=== PATIENT | female | born 1955 | race Caucasian/White ===

== ENCOUNTER → 2018-12-29 08:04 | Outpatient (CLI) | payer MEDICAID, SELFPAY ==
--- NOTE | 2018-12-29 08:13 | XR_ITS ---
XR knee LT 3V HISTORY: ITS.REASON: LT KNEE PAIN ORDERING PHYSICIAN: Noemi Gonsales APRN PATIENT AGE: 63 years COMPARISON: None FINDINGS: No fracture or dislocation. No lytic or blastic change. Normal mineralization. No significant arthritic changes evident. No other significant findings IMPRESSION: Negative Knee
--- NOTE | 2018-12-29 08:13 | XR_ITS ---
XR shoulder LT min 2V HISTORY: ITS.REASON: LT SHOULDER PAIN ORDERING PHYSICIAN: Noemi Gonsales APRN PATIENT AGE: 63 years Comparison: None FINDINGS: No fracture or dislocation. No lytic or blastic change. There are mild osteoarthritic changes of the acromioclavicular joint and glenohumeral joint. Calcification is present along the humeral head laterally consistent with calcific tendinitis. 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
== END ==
PROVIDERS: PCP Nurse Practitioner Family; Visit Provider Nurse Practitioner Family
DX: M25.562 Pain in left knee (principal); M25.512 Pain in left shoulder
CPT/HCPCS: 73030; 73562

== ENCOUNTER → 2019-04-02 09:47 | Outpatient (CLI) | payer MEDICAID, SELFPAY ==
[2019-04-02 09:53] LABS: Microscopic, Urine URINE MICROSCOPIC (MICROSCOPIC)
[2019-04-02 10:10] LABS: Basophils % 0.1 % (0.1-2.0); Eosinophils # 0.3 K/mm3 (0.0-0.4); Eosinophils % 3.6 % (0.1-12.0); Hematocrit 43.5 % (37.0-47.0); Hemoglobin 13.6 g/dL (12.2-16.2); Lymphocytes # 2.1 K/mm3 (0.7-4.5); Lymphocytes % 29.5 % (10-50); Mean Corpuscular HGB Conc 31.1 g/dL (31.8-35.4); Mean Corpuscular Hemoglobin 27.4 pg (27.0-31.2); Mean Platelet Volume 8.9 fl (7.4-10.4); Monocytes # 0.6 K/mm3 (0.1-1.0); Monocytes % 8.3 % (1.7-9.3); Neutrophils # 4.2 K/mm3 (1.8-7.8); Neutrophils % 58.5 % (37.0-80.0); Platelet Count 236 K/mm3 (142-424); Red Blood Count 4.95 M/mm3 (4.20-5.40); Red Cell Distribution Width 13.8 % (11.5-17.5); White Blood Count 7.1 K/mm3 (4.8-10.8)
[2019-04-02 17:45] LABS: Albumin Level 4.1 gm/dL (3.4-5.0); Anion Gap 16.1 mEq/L (5-15); Blood Urea Nitrogen 25 mg/dL (7-18); Calcium 8.8 mg/dL (8.5-10.1); Carbon Dioxide 27 mmol/L (21.0-32.0); Chloride 105 mmol/L (98-107); Creatinine,Serum 1.63 mg/dL (0.55-1.02); Estimated Glomerular Filt Rate 32 ml/min (>60); GFR (African American) 39 ML/MIN (>60); Glucose 115 mg/dL (74-106); Phosphorous 3.3 mg/dL (2.4-4.9); Sodium 144 mmol/L (136-145)
[2019-04-02 18:12] LABS: Appearance,Urine CLEAR (Clear); Blood, Urine Negative (Negative); Color,Urine YELLOW (Yellow); Glucose,Urine (UA) Negative (Negative); Ketones,Urine TRACE (Negative); Leukocyte Esterase,Urine Negative (Negative); Nitrate,Urine Negative (Negative); PH,Urine 5.5 (5.0-8.5); Protein,Urine Negative (Negative); Specific Gravity, Urine 1.025 (1.005-1.030); Urobilinogen,Urine 0.2 EU/dl (0.2)
[2019-04-02 18:13] LABS: Bilirubin,Urine Negative (Negative)
[2019-04-02 18:36] LABS: Potassium 4.1 mmoL/L (3.5-5.1)
[2019-04-02 19:36] LABS: Bacteria,Urine 3+ /lpf; Mucus,Urine 2+ /lpf; WBC,Urine Occasional #/hpf (0-3)
[2019-04-02 20:23] LABS: Creatinine,Urine Random 294 mg/dL (20-320); Total Protein,Urine Random 23.7 mg/dL (0.0-11.9)
[2019-04-04 00:27] LABS: Parathyroid Hormone Intact 62 pg/mL (15-65)
[2019-04-04 00:28] LABS: Vitamin D 25 Hydroxy 31.7 ng/mL (30.0-100.0)
== END ==
PROVIDERS: PCP Nurse Practitioner Family; Visit Provider Internal Medicine Nephrology
DX: N18.3 Chronic kidney disease, stage 3 (moderate) (principal)
CPT/HCPCS: 36415; 80069; 81001; 82570; 82652; 83970; 84155; 85025; 87086

== ENCOUNTER 2019-04-23 10:00 | Outpatient (RCR) | payer MEDICAID, SELFPAY ==
--- NOTE | 2019-02-13 11:08 | HMH.OTOPEV ---
OT Inpatient Evaluation Rehab OT Outpatient Eval Start: 02/13/19 10:52 Freq: Status: Active Protocol: Document 02/13/19 10:52 RMARSHALL (Rec[id number] Electronically Signed By Gilma Marmolejo OT 02/13/19 10:52 Outpatient Therapy Subjective History Subjective History Pt is a 63 year old female who reports to therapy for initial evaluation to left shoulder. Pt reports her shoulder began having pain ~3 months ago. She does not recall a specific injury causing pain. Pt did have a x -ray completed showing arthritic changes. Pt went for consultation with Ortho and received an injection on . Pt claims since the injection her pain has improved significantly, but her motion is still declined. Pt does demonstrate with decreased AROM and strength at left shoulder. Pt will continue to be seen twice a week in order to address all deficits. Chief Complaint Pain,Stiff Symptom Type Ache,Throb,Sharp Symptoms Relieved By Rest/Positioning Symptoms Aggravated By Physical Activity,Lifting Prior Functional Limitations None Current Functional Limitations Reaching,Lifting,Housework, Dressing,Sleeping,Recreation Activity Symptom Description Intermittent,Activity Dependent Level of pain today (0-10) 1 Pain scale - at its best (0-10) 0 Pain scale - at its worst (0-10) 6 Shoulder/Elbow Eval Shoulder Objective Measurements Shoulder ROM Left Shoulder ROM Limitations Muscle Weakness,Pain Shoulder Abduction Active Range of 100 degrees Motion (degrees) Shoulder Abduction Passive Range of 130 degrees Motion (degrees) Shoulder Flexion Active Range of Motion 105 degrees (degrees) Query Text: Shoulder Flexion Passive Range of Motion 130 degrees (degrees) Shoulder External Rotation Active Range 32 degrees of Motion (degrees) Shoulder External Rotation Passive Range 40 degrees of Motion (degrees) Shoulder Internal Rotation Active Range 40 degrees of Motion (degrees)
--- NOTE | 2019-03-21 11:15 | HMH.RHREAS ---
Rehab Reassessment Rehab OP Re-assessment Start: 03/21/19 10:42 Freq: Status: Active Protocol: Document 03/21/19 10:50 ZAYDA (Rec: 03/21/19 10:56 [id number] Electronically Signed By Gilma Marmolejo OT 03/21/19 10:50 Rehab Re-assessment Subjective Subjective I still want the motion to be better. Objective Objective Notes Pt continues to be seen twice a week in order to address left shoulder deficits. Pt engages in Left AROM/AAROM/ Strengthening exercises at shoulder. Pt also receives PROM manual stretching to left shoulder in all planes. Pt usually receives modalities such as e-stim and ice to reduce pain/inflammation. Assessment Progress Assessment Progressing as Expected Assessment Notes Pt is demonstrating progress with AROM and strength. Pt is still having significant pain when being stretched. Pt feels her motion has improved, but she wants to have full AROM like she did prior. L shoulder AROM Current Flex: 146 degrees Abd: 134 degrees ER: 60 degrees IF: 65 degrees Patient goals met Pt has met all short term goals Goals Not Met intermediate project manager goals Revised Goals Continue to progress towards fpc goals written during initial evaluation. Plan Plan Continue with OT plan of care at this time. Frequency of Therapy 2x's a week Duration of therapy 4-6 more weeks Time and Billing Re-Eval Time 15 Re-Eval Billing Units 1 PHYSICIAN CERTIFICATION: I certify the specified therapy services for Deandra Lacey are required, authorized, and reviewed every 30 days.
== END 2019-04-23 10:05 | disposition home or self-care (01) ==
LOC: OT 10:00
PROVIDERS: Visit Provider Orthopaedic Surgery
DX: M75.02 Adhesive capsulitis of left shoulder (principal)
CPT/HCPCS: 97014; 97110; 97140; 97164; 97166; G0283

== ENCOUNTER → 2019-05-01 13:51 | Outpatient (CLI) | payer MEDICAID, SELFPAY ==
--- NOTE | 2019-05-01 13:56 | XR_ITS ---
PROCEDURE: XR KNEE RT 4V CLINICAL INDICATION: Knee pain Severe right knee pain with limited mobility COMPARISON: No exams were available for comparison FINDINGS: Status post total knee replacement with good alignment. There is a faintly prominent zone of lucency around both femoral and tibial prosthesis. Please correlate with old studies to determine if this is new or old. There are no previous exams available at this institution. There is some mild periarticular calcification. IMPRESSION: Status post total knee replacement as described above. No definite acute finding Dictated by: Kenn Brumfield MD 05/01/2019 14:44 Electronically signed by Kenn Brumfield MD in [place] 05/01/2019 14:44
== END ==
PROVIDERS: PCP Family Medicine; Visit Provider Orthopaedic Surgery
DX: M25.561 Pain in right knee (principal)
CPT/HCPCS: 73564

== ENCOUNTER → 2019-05-14 13:34 | Outpatient (POV) | payer MEDICAID, SELFPAY | PROVIDERS: Visit Provider Internal Medicine Nephrology | DX: Z00.00 Encounter for general adult medical examination without abnormal findings (principal) ==

== ENCOUNTER → 2019-09-03 09:32 | Outpatient (CLI) | payer BC, SELFPAY ==
--- NOTE | 2019-09-03 09:38 | XR_ITS ---
PROCEDURE: XR DEXA AXIAL SKELETON CLINICAL HISTORY: OSTEOPAROSIS Postmenopausal female FINDINGS: Using the femoral neck the bone mineral density was measured to be 0.62 grams/squared centimeter. T-score -2.0 is consistent with osteopenia. Ten year fracture risk for major osteoporotic fracture is 9.8 percent with risk of hip fracture 1.4 percent. Using L1 through L4 vertebrae total bone mineral density is 1.09 grams/squared centimeter. T-score 0.4 is consistent with normal mineralization. IMPRESSION: Osteopenia of the femoral neck with increased fracture risk. Normal mineralization of the spine Dictated by: Chirag Burrell 09/03/2019 12:35 Electronically signed by Chirag Burrell in [place] 09/03/2019 12:35
--- NOTE | 2019-09-03 09:39 | US_ITS ---
PROCEDURE: US KIDNEY CLINICAL INDICATION: CKD III COMPARISON: No exams were available for comparison FINDINGS: The right kidney is 7.5 cmx3.4x4.0. No hydronephrosis, or renal mass or perinephric fluid collection is evident. Right renal cortex measures 5.5 millimeters. The left kidney is 9cmx.x5.1. No hydronephrosis, or renal mass or perinephric fluid collection is evident. Left renal cortex measures 6.9 millimeters. There is normal cortical echogenicity. IMPRESSION: Bilateral renal cortical thinning without mass or obstruction. Dictated by: Chirag Burrell 09/03/2019 14:26 Electronically signed by Chirag Burrell in [place] 09/03/2019 14:26
== END ==
PROVIDERS: PCP Family Medicine; Visit Provider Internal Medicine Nephrology
DX: N18.3 Chronic kidney disease, stage 3 (moderate) (principal); M81.0 Age-related osteoporosis without current pathological fracture
CPT/HCPCS: 76770; 77080

== ENCOUNTER → 2019-09-06 14:20 | Outpatient (CLI) | payer BC, SELFPAY ==
[2019-09-06 14:48] LABS: Basophils % 0.2 % (0.1-2.0); Eosinophils # 0.2 K/mm3 (0.0-0.4); Eosinophils % 3.4 % (0.1-12.0); Hematocrit 40.5 % (37.0-47.0); Hemoglobin 12.7 g/dL (12.2-16.2); Lymphocytes # 1.9 K/mm3 (0.7-4.5); Lymphocytes % 27.1 % (10-50); Mean Corpuscular HGB Conc 31.3 g/dL (31.8-35.4); Mean Corpuscular Hemoglobin 27.8 pg (27.0-31.2); Mean Corpuscular Volume 88.7 fl (81-99); Mean Platelet Volume 9.1 fl (7.4-10.4); Monocytes # 0.4 K/mm3 (0.1-1.0); Monocytes % 4.9 % (1.7-9.3); Neutrophils # 4.6 K/mm3 (1.8-7.8); Neutrophils % 64.4 % (37.0-80.0); Platelet Count 228 K/mm3 (142-424); Red Blood Count 4.57 M/mm3 (4.20-5.40); Red Cell Distribution Width 13.6 % (11.5-17.5); White Blood Count 7.2 K/mm3 (4.8-10.8)
[2019-09-06 15:35] LABS: Albumin Level 3.7 gm/dL (3.4-5.0); Anion Gap 12.1 mEq/L (5-15); Blood Urea Nitrogen 23 mg/dL (7-18); Calcium 8.8 mg/dL (8.5-10.1); Carbon Dioxide 28 mmol/L (21.0-32.0); Chloride 108 mmol/L (98-107); Creatinine,Serum 1.46 mg/dL (0.55-1.02); Estimated Glomerular Filt Rate 36 ml/min (>60); GFR (African American) 44 ML/MIN (>60); Glucose 136 mg/dL (74-106); Phosphorous 3.5 mg/dL (2.4-4.9); Potassium 4.1 mmoL/L (3.5-5.1); Sodium 144 mmol/L (136-145)
[2019-09-12 10:45] LABS: Tandem-R Ostase 10.8 ug/L (.)
== END ==
PROVIDERS: Visit Provider Internal Medicine Nephrology
DX: N18.3 Chronic kidney disease, stage 3 (moderate) (principal); M81.0 Age-related osteoporosis without current pathological fracture
CPT/HCPCS: 36415; 80069; 84080; 85025

== ENCOUNTER → 2019-09-12 10:21 | Outpatient (POV) | payer BC, SELFPAY | PROVIDERS: Visit Provider Internal Medicine Nephrology | DX: Z00.00 Encounter for general adult medical examination without abnormal findings (principal) ==

== ENCOUNTER → 2020-05-13 09:11 | Outpatient (CLI) | payer BC, SELFPAY ==
--- NOTE | 2020-05-13 09:21 | US_ITS ---
PROCEDURE: US KIDNEY CLINICAL INDICATION: CKD STAGE 3 COMPARISON: US US KIDNEY from 09/03/2019 FINDINGS: The right kidney is [id number]. No hydronephrosis, cortical thinning, or renal mass or perinephric fluid collection is evident. The left kidney is [id number]. No hydronephrosis, cortical thinning, or renal mass or perinephric fluid collection is evident. There is mild bilateral renal cortical thinning. IMPRESSION: Mild bilateral renal cortical thinning otherwise negative bilateral renal ultrasound. Dictated by: Kenn Brumfield MD 05/13/2020 16:02 Kenn Brumfield MD in [place] 05/13/2020 16:02
== END ==
PROVIDERS: PCP Nurse Practitioner Family; Visit Provider Nurse Practitioner Family
DX: N18.3 Chronic kidney disease, stage 3 (moderate) (principal)
CPT/HCPCS: 76770

== ENCOUNTER → 2020-08-04 12:51 | Outpatient (CLI) | payer BC, SELFPAY ==
--- NOTE | 2020-08-04 12:52 | MM_ITS ---
PROCEDURE: MM DIG SCREENING MAMM BI W/CAD Digital Breast Tomosynthesis Included CLINICAL INDICATION: Routine Screening Mammogram There is no personal or family history of breast cancer. Patient currently estrogen. COMPARISON: MG MM MAMMO DIGITAL SCREENING W CAD BILAT from 07/23/2017 MG MM MAMMO DIGITAL SCREENING W CAD BILAT from 06/23/2018 MG MM MAMMO DIGITAL SCREENING W CAD BILAT from 08/03/2019 TECHNIQUE: Standard CC and MLO images and 3D Tomosynthesis was obtained. R2 CAD reviewed. FINDINGS: Scattered fibroglandular densities are seen both breasts the findings are fairly symmetrical and bilateral. There is a mole marker upper central right breast. There is no suspicious lesion and no suspicious microcalcifications in either breast. IMPRESSION: Fibrofatty parenchyma no suspicious lesions seen BI-RAD Category: 1 Negative FOLLOW-UP: 1YR 1 Year Follow-up (A letter has been sent to the patient regarding results of the study.) Dictated by: Dr. Riley Fernandes MD 08/06/2020 11:04 Dr. Riley Fernandes MD in [place] 08/06/2020 11:04
== END ==
PROVIDERS: PCP Nurse Practitioner Family; Visit Provider Obstetrics & Gynecology
DX: Z12.31 Encounter for screening mammogram for malignant neoplasm of breast (principal)
CPT/HCPCS: 77063; 77067

== ENCOUNTER → 2020-09-15 10:39 | Outpatient (CLI) | payer BC, SELFPAY ==
[2020-09-15 11:13] LABS: Creatinine,Urine Random 27 mg/dL (Not Estab.)
[2020-09-15 11:18] LABS: Basophils % 0.3 % (0.1-2.0); Eosinophils # 0.3 K/mm3 (0.0-0.4); Eosinophils % 3.6 % (0.1-12.0); Hematocrit 45.1 % (37.0-47.0); Hemoglobin 14.7 g/dL (12.2-16.2); Lymphocytes # 2.8 K/mm3 (0.7-4.5); Mean Corpuscular HGB Conc 32.5 g/dL (31.8-35.4); Mean Corpuscular Hemoglobin 28.7 pg (27.0-31.2); Mean Corpuscular Volume 88.5 fl (81-99); Mean Platelet Volume 9.2 fl (7.4-10.4); Monocytes # 0.5 K/mm3 (0.1-1.0); Monocytes % 5.5 % (1.7-9.3); Neutrophils # 5.5 K/mm3 (1.8-7.8); Neutrophils % 59.5 % (37.0-80.0); Platelet Count 245 K/mm3 (142-424); Red Cell Distribution Width 13.7 % (11.5-17.5); White Blood Count 9.2 K/mm3 (4.8-10.8)
[2020-09-15 11:37] LABS: Chloride 101 mmol/L (98-107); Potassium 4.1 mmoL/L (3.5-5.1); Sodium 137 mmol/L (136-145)
[2020-09-15 11:38] LABS: Albumin Level 4.7 g/dl (3.5-5.0)
[2020-09-15 11:40] LABS: Anion Gap 14.1 mEq/L (5-15); Blood Urea Nitrogen 32 mg/dl (7-17); Carbon Dioxide 26 mmol/L (22.0-30.0); Estimated Glomerular Filt Rate 41 ml/min (>60); GFR (African American) 50 ML/MIN (>60); Phosphorous 3.3 mg/dl (2.5-4.5)
[2020-09-15 11:41] LABS: Calcium 10.2 mg/dl (8.4-10.2); Glucose 164 mg/dl (74-100)
[2020-09-18 19:47] LABS: Tandem-R Ostase 17.6 ug/L (.)
== END ==
PROVIDERS: Visit Provider Internal Medicine Nephrology
DX: N18.30 Chronic kidney disease, stage 3 unspecified (principal); M81.0 Age-related osteoporosis without current pathological fracture
CPT/HCPCS: 36415; 80069; 82306; 82570; 84080; 84155; 85025

== ENCOUNTER → 2020-10-13 12:25 | Outpatient (CLI) | payer BC, SELFPAY ==
--- NOTE | 2020-10-13 12:29 | XR_ITS ---
PROCEDURE: XR KNEE RT 4V CLINICAL INDICATION: RT knee pain COMPARISON: CR XR KNEE RT 4V from 05/01/2019 FINDINGS: There has been a total knee prosthesis placement with mildly prominent femoral and tibial stems. No acute fracture or dislocation. No evidence of prosthesis malfunction there is a thin zone of lucency around the tibial component of the prosthesis however, this is not significantly changed. IMPRESSION: Status post total knee prosthesis. No change with no acute finding Dictated by: Kenn Brumfield MD 10/13/2020 15:11 Kenn Brumfield MD in [place] 10/13/2020 15:11
== END ==
PROVIDERS: PCP Nurse Practitioner Family; Visit Provider Orthopaedic Surgery
DX: M25.561 Pain in right knee (principal)
CPT/HCPCS: 73564

== ENCOUNTER → 2020-11-12 08:29 | Outpatient (CLI) | payer BC, SELFPAY ==
--- NOTE | 2020-11-12 08:46 | NM_ITS ---
PROCEDURE: NM BONE 3 PHASE CLINICAL INDICATION: pain COMPARISON: Correlation with the right knee radiograms cysts of October 13, 2020 TECHNIQUE: Dose 24.1 mCi of technetium MDP was injected FINDINGS: Triple phase bone scan demonstrates increase in the radioisotope uptake in adjacent to the right knee prosthesis. There is evidence of significant radius top uptake noted on the delayed phase images, predominantly adjacent to the tibial prosthesis. Moderate amount of radioisotope uptake noted adjacent to the femoral prosthesis. Mild radioisotope uptake is noted in the left knee joint, likely represents degenerative changes. IMPRESSION: Moderate radioisotope uptake noted adjacent to the femoral and tibial prosthesis of the right knee, worse at adjacent to the tibial component. Loosening versus infection should be considered. Clinical correlation is recommended. Dictated by: Wendi Lange 11/12/2020 14:24 Wendi Lange in [place] 11/12/2020 14:24
[2020-11-12 09:05] LABS: Basophils % 0.1 % (0.1-2.0); Eosinophils # 0.2 K/mm3 (0.0-0.4); Eosinophils % 3.3 % (0.1-12.0); Hematocrit 43.1 % (37.0-47.0); Hemoglobin 13.6 g/dL (12.2-16.2); Lymphocytes # 1.8 K/mm3 (0.7-4.5); Lymphocytes % 24.3 % (10-50); Mean Corpuscular HGB Conc 31.6 g/dL (31.8-35.4); Mean Corpuscular Hemoglobin 28.1 pg (27.0-31.2); Monocytes # 0.4 K/mm3 (0.1-1.0); Monocytes % 5.2 % (1.7-9.3); Neutrophils # 4.9 K/mm3 (1.8-7.8); Neutrophils % 67.1 % (37.0-80.0); Platelet Count 216 K/mm3 (142-424); Red Blood Count 4.84 M/mm3 (4.20-5.40); Red Cell Distribution Width 13.2 % (11.5-17.5); White Blood Count 7.3 K/mm3 (4.8-10.8)
[2020-11-12 09:26] LABS: C-Reactive Protein 1.4 mg/L (0-4)
[2020-11-12 10:12] LABS: Erythrocyte Sedimentation Rate 57 mm/hr (0-30)
== END ==
PROVIDERS: PCP Nurse Practitioner Family; Visit Provider Orthopaedic Surgery
DX: M25.561 Pain in right knee (principal); G89.29 Other chronic pain; Z96.651 Presence of right artificial knee joint
CPT/HCPCS: 36415; 78315; 85025; 85651; 86140; A9503

== ENCOUNTER 2021-05-08 09:00 | Emergency (ER) | payer BC, SELFPAY ==
[2021-05-08 09:00] VITALS: BP 158/77; PULSE 66; RESP 18; TEMP 37; O2SAT 99; BMI 30.5
--- NOTE | 2021-05-08 09:38 | HMH.EDUTC ---
[facility] [place] Disposition Clinical Impression: Sinusitis Qualifiers: Sinusitis location: unspecified location Chronicity: acute Recurrence: non-recurrent Qualified Code(s): J01.90 - Acute sinusitis, unspecified Disposition: Home, Self-Care Condition on Discharge: Good Instructions: DI for Sinusitis, Sinusitis, Preventing the Spread of Coronavirus Discharge Instructions, DI for COVID-19 (Suspected or Confirmed ) Additional Instructions: Drink plenty of fluids. Take tylenol or ibuprofen for pain or fever. Take the medications as directed. Follow up with your regular doctor. GO TO THE ER FOR ANY WORSENING SYMPTOMS Quarantine until you know the results of your covid-19 test. If it is positive, the health department should call you and give you further instructions about your length of Quarantine and other things. Notify your school or workplace of your results and follow their instructions regarding return to work/school. Don't start the oral steroids until tomorrow, since you had the shot here today. Prescriptions: methylPREDNISolone [Medrol] 4 mg PO DIRECTED 6 Days #21 packet Transmission Status: Pending to [facility] guaiFENesin [Mucinex 600mg tablet] 1 - 2 tab PO BIDP PRN #30 tab PRN Reason: Congestion [facility] Cefdinir [Omnicef 300mg Capsule] 300 mg PO BID #20 cap Transmission Status: Pending to [facility] Benzonatate [Tessalon Perle 100mg Cap] 100 mg PO TIDP PRN #30 cap PRN Reason: Cough Transmission Status: Pending to [facility] Referrals: Noemi Gonsales APRN [Primary Care Provider] - Forms: Work/School Release Time of Disposition: 09:48 Medical Decision Making - Medical Records Medical records reviewed: No: I reviewed the patient's medical records. - Guero Inquiry Pt receiving controlled substance: No Vital Signs: 05/08/21 09:00 Temperature 98.6 F Temperature Source Oral Pulse Rate [Right Brachial] 66 Respiratory Rate 18 Blood Pressure [Right Arm] 158/77 H Blood Pressure Mean [Right Arm] 104 Blood Pressure Source [Right Arm] Automatic Cuff Blood Pressure Position [Right Arm] Sitting 02 Sat by Pulse Oximetry 99 Oxygen Delivery Method Room Air Orders (Tests/Meds): ORDERS Category Date Time Status Covid-19 Nasal PCR ([facility]) Routine Lab 05/08/21 09:33 Ordered [facility] [place] HPI - General Stated complaint: sore throat,cough,SOA,headache Time Seen by Provider: 05/08/21 09:15 Mode of Arrival: Ambulatory Source of Information: Patient Limitations: No Limitations Description of Symptoms (Recalled from Triage Doc. by RN): PATIENT C/O SINUS PRESSURE, COUGH AND CONGESTION. SHE BELIEVES IT IS A SINUS INFECTION HEENT Symptoms (Recalled from RN notes): Yes Resp Symptoms (Recalled from RN notes): No Skin Symptoms (Recalled from RN notes): No MS Symptoms (Recalled from RN notes): No Functional Status (Recalled from RN notes): WNL - History of Present Illness Provider Complaint: She states that for the past 7 days she has had sinus congestion, sinus drainage, scratchy throat and she has felt kind of bad. She thinks that she has a sinus infection. She usually gets one this time of year every year. She has been vaccinated against covid-19. She denies any known covid-19 exposure, but she works as a high school industrial arts teacher, so she is not completely sure what she has been exposed to. - Related Data Home Medications Medication Instructions Recorded Confirmed Aspirin [Aspirin 81mg EC Tab] 81 mg PO DAILY 02/16/18 05/08/21 Atorvastatin Calcium [Atorvastatin 20 mg PO DAILY 02/16/18 05/08/21 20mg Tab] Calcium Carb/Vit D3/Minerals 1 each PO DAILY 02/16/18 05/08/21 [Calcium 600+D Plus Minerals Tb] Naproxen [Naprosyn 500mg tablet] 500 mg PO BID PRN 02/16/18 05/08/21 Pantoprazole Sodium [Protonix 40mg 40 mg PO DAILY 02/16/18 05/08/21 tablet] estradioL [Estrace] 0.5 mg PO DAILY 02/16/18 05/08/21 vicente
[2021-05-08 09:54] VITALS: BP 158/77; PULSE 66; RESP 18; TEMP 37; O2SAT 99
== END 2021-05-08 09:59 | disposition home or self-care (01) ==
PROVIDERS: Emergency Provider Nurse Practitioner Family; PCP Nurse Practitioner Family
DX: J01.90 Acute sinusitis, unspecified (principal); Z20.822 Contact with and (suspected) exposure to COVID-19; E78.5 Hyperlipidemia, unspecified; I10 Essential (primary) hypertension; K21.9 Gastro-esophageal reflux disease without esophagitis; Z87.891 Personal history of nicotine dependence
CPT/HCPCS: 96372; 99202; C9803; G0463; U0003; U0005

== ENCOUNTER → 2021-08-14 10:39 | Outpatient (CLI) | payer BC, SELFPAY ==
--- NOTE | 2021-08-14 10:40 | MM_ITS ---
PROCEDURE INFORMATION: Exam: MG Bilateral Screening 3D Mammography Exam date and time: 08/14/2021 10:40 AM Age: 66 years old Clinical indication: Encounter for screening mammogram for malignant neoplasm of breast TECHNIQUE: Imaging protocol: Bilateral screening tomosynthesis and 2D mammography including computer-aided detection (CAD) when performed. COMPARISON: 1. MG MM DIG SCREENING MAMM BI W/CAD 08/04/2020 1:03 PM 2. MG MM MAMMO DIGITAL SCREENING W CAD BILAT 08/03/2019 10:23 AM FINDINGS: MAMMOGRAPHY: Breast composition: The breast tissue is composed of scattered areas of fibroglandular density. Mass: None. Architectural distortion: None. Calcifications: No suspicious calcifications. Asymmetric density: None. Skin thickening: None. Axillary adenopathy: None. IMPRESSION: No mammographic evidence of malignancy. Annual screening is recommended unless otherwise clinically indicated. ASSESSMENT: BI-RADS Category 1: Negative
== END ==
PROVIDERS: PCP Nurse Practitioner Family; Visit Provider Obstetrics & Gynecology
DX: Z12.31 Encounter for screening mammogram for malignant neoplasm of breast (principal)
CPT/HCPCS: 77063; 77067

== ENCOUNTER → 2021-08-17 14:28 | Outpatient (CLI) | payer BC, SELFPAY | PROVIDERS: PCP Nurse Practitioner Family; Visit Provider Nurse Practitioner | DX: U07.1 COVID-19 (principal) | CPT/HCPCS: C9803; U0003; U0005 ==

== ENCOUNTER → 2021-09-15 09:04 | Outpatient (CLI) | payer BC, SELFPAY ==
--- NOTE | 2021-09-15 09:13 | XR_ITS ---
FINAL REPORT TECHNIQUE: Bone mineral density was calculated of the lumbar spine and hip. CLINICAL HISTORY: OSTEOPOROSIS, POST MENOPAUSSAL COMPARISON: 09/03/2019 FINDINGS: Using L1-4, the bone mineral density of the spine is 1.107, was 1.090 g/cm2, corresponding to T-score of 0.5, was 0.4. Findings are similar to prior. Using the left hip, the bone mineral density of the femoral neck is 0.610, was 0.652 g/cm2, corresponding to a T-score of -2.1, was -1.8. Findings are worse since previous. There is an 11% risk of major osteoporotic fracture and 1.8% risk of hip fracture based on FRAX data. NOTE: T-score: Standard deviation compared with peak bone mass of young adult mean. *Following the recommendations of the International Society of Bone densitometry, classification of hip BMD is based on the lower of two T-scores; total hip or femoral neck. IMPRESSION: Diminished bone mineral density of the lumbar spine and left hip consistent with osteopenia. There is an 11% risk of major osteoporotic fracture and 1.8% risk of hip fracture based on FRAX data. Reviewed, Interpreted and Dictated by Veto Brandt III, MD Transcribed by Leanna Crenshaw Authenticated by Veto Brandt III, MD on 09/15/2021 11:40:49 AM [facility]
== END ==
PROVIDERS: PCP Nurse Practitioner Family; Visit Provider Internal Medicine Nephrology
DX: M81.0 Age-related osteoporosis without current pathological fracture (principal)
CPT/HCPCS: 77080

== ENCOUNTER 2021-09-20 12:30 | Emergency (ER) | payer BC, SELFPAY ==
[2021-09-20 12:40] VITALS: BP 140/83; PULSE 103; RESP 20; TEMP 36.9; O2SAT 95; BMI 34.3
--- NOTE | 2021-09-20 13:39 | HMH.EDUTC ---
[facility] [place] Disposition Clinical Impression: Sinusitis Qualifiers: Sinusitis location: unspecified location Chronicity: unspecified Qualified Code(s): J32.9 - Chronic sinusitis, unspecified Disposition: Home, Self-Care Condition on Discharge: Good Instructions: Sinusitis, DI for Sinusitis Additional Instructions: *Monitor Temp, Over the counter Motrin or Tylenol as directed/as needed Tylenol every 4 hours and Motrin every 6 hours (as long as your family doctor has told you that you can take it) for fever or pain. and straight to ER if unable to lower temp less than 101.0 after medication given *Warm salt water gargles may help to soothe the throat *Throat Lozenges *Warm fluids like tea with honey may help to soothe the throat *Sleep elevated *Humidifier/Vaporizer *Flonase 2 sprays in each nostril daily but be aware that it may take 2-3 days before you notice improvement Follow up IMMEDIATELY for new or worsening symptoms or no Noticeable improvement over the next 48-72 hours. 911 for difficulty breathing or swallowing Prescriptions: Benzonatate [Benzonatate 100mg cap] 100 mg PO Q8HP PRN #15 cap PRN Reason: Cough Transmission Status: Received by [id number] Amoxicillin/Potassium Clav [Augmentin 875-125 Tablet] 1 tab PO Q12H 7 Days #14 tab Transmission Status: Received by [facility] methylPREDNISolone [Medrol 4mg tab] 4 mg PO DIRECTED #21 tab Transmission Status: Received by [facility] Referrals: Noemi Gonsales APRN [Primary Care Provider] - As needed Time of Disposition: 13:53 Medical Decision Making - Guero Inquiry Pt receiving controlled substance: No Guero was queried for this patient: No Vital Signs: 09/20/21 12:40 09/20/21 13:41 Temperature 98.5 F 98.5 F Temperature Source Oral Pulse Rate 103 H Pulse Rate [Right Brachial] 103 H Respiratory Rate 20 20 Blood Pressure 140/83 Blood Pressure [Right Arm] 140/83 Blood Pressure Mean [Right Arm] 102 Blood Pressure Source [Right Arm] Automatic Cuff Blood Pressure Position [Right Arm] Sitting 02 Sat by Pulse Oximetry 95 Oxygen Delivery Method Room Air - Lab Data Lab results reviewed: Yes: I reviewed the patient's lab results. Lab Results 09/20/21 13:39: Influenza Type A Ag Negative, Influenza Type B Ag Negative [facility] [place] HPI - General Stated complaint: fever/chills, sore throat, cough, h/a, weakness Time Seen by Provider: 09/20/21 13:39 Mode of Arrival: Ambulatory Source of Information: Patient Limitations: No Limitations Description of Symptoms (Recalled from Triage Doc. by RN): PATIENT C/O SOA, COUGH, HEADACHE, SNEEZING, WEAKNESS, BODY ACHES, CHILLS, AND SWEATS SINCE YESTERDAY HEENT Symptoms (Recalled from RN notes): Yes Resp Symptoms (Recalled from RN notes): Yes Skin Symptoms (Recalled from RN notes): No MS Symptoms (Recalled from RN notes): No Functional Status (Recalled from RN notes): WNL - History of Present Illness Provider Complaint: Patient states that she had COVID about a month ago States that she has been having sinus pain and pressure, sneezing coughing, body aches, feeling like she is achy all over States that today she was still feeling worse State that she is having pressure behing her eyes and felt a little SOA after coughing earlier - Related Data Home Medications Medication Instructions Recorded Confirmed Aspirin [Aspirin 81mg EC Tab] 81 mg PO DAILY 02/16/18 08/13/21 Atorvastatin Calcium [Atorvastatin 20 mg PO DAILY 02/16/18 08/13/21 20mg Tab] Calcium Carb/Vit D3/Minerals 1 each PO DAILY 02/16/18 08/13/21 [Calcium 600+D Plus Minerals Tb] Naproxen [Naprosyn 500mg tablet] 500 mg PO BID PRN 02/16/18 08/13/21 Pantoprazole Sodium [Protonix 40mg 40 mg PO DAILY 02/16/18 08/13/21 tablet] lisinopriL [Lisinopril 20mg Tab] 20 mg PO DAILY 02/16/18 08/13/21 hydrochlorothiazide 12.5 mg tablet 25 mg PO DAILY 05/06/20 08/13/21 glyBURIDE [Diabeta 2.5mg tablet] 2.5 mg PO
[2021-09-20 13:40] LABS: UTC Influenza A Antigen Negative (Negative); UTC Influenza B Antigen Negative (Negative)
[2021-09-20 13:41] VITALS: BP 140/83; PULSE 103; RESP 20; TEMP 36.9; O2SAT 95
== END 2021-09-20 13:55 | disposition home or self-care (01) ==
PROVIDERS: Emergency Provider Nurse Practitioner; PCP Nurse Practitioner Family
DX: J32.9 Chronic sinusitis, unspecified (principal); Z86.16 Personal history of COVID-19; E11.9 Type 2 diabetes mellitus without complications; K21.9 Gastro-esophageal reflux disease without esophagitis; E78.5 Hyperlipidemia, unspecified; I10 Essential (primary) hypertension; F41.9 Anxiety disorder, unspecified; Z87.891 Personal history of nicotine dependence
CPT/HCPCS: 87804; 99202; G0463

== ENCOUNTER → 2021-09-30 08:15 | Outpatient (CLI) | payer BC, SELFPAY ==
[2021-09-30 08:34] LABS: Basophils % 0.2 % (0.1-2.0); Eosinophils # 0.2 K/mm3 (0.0-0.4); Eosinophils % 3.2 % (0.1-12.0); Hemoglobin 14.1 g/dL (12.2-16.2); Lymphocytes # 2.6 K/mm3 (0.7-4.5); Mean Corpuscular Hemoglobin 28.7 pg (27.0-31.2); Mean Corpuscular Volume 89.9 fl (81-99); Mean Platelet Volume 9.3 fl (7.4-10.4); Monocytes # 0.4 K/mm3 (0.1-1.0); Monocytes % 5.6 % (1.7-9.3); Neutrophils # 3.7 K/mm3 (1.8-7.8); Platelet Count 254 K/mm3 (142-424); Red Cell Distribution Width 12.9 % (11.5-17.5); White Blood Count 6.9 K/mm3 (4.8-10.8)
[2021-09-30 09:52] LABS: 25-OH Vitamin D, Total 36.1 ng/mL (30-100)
[2021-09-30 10:04] LABS: Chloride 103 mmol/L (98-107); Potassium 4.3 mmoL/L (3.5-5.1); Sodium 134 mmol/L (136-145)
[2021-09-30 10:06] LABS: Blood Urea Nitrogen 26 mg/dl (7-17); Estimated Glomerular Filt Rate 35 ml/min (>60); GFR (African American) 42 ML/MIN (>60)
[2021-09-30 10:07] LABS: Anion Gap 9.3 mEq/L (5-15); Calcium 8.6 mg/dl (8.4-10.2); Carbon Dioxide 26 mmol/L (22.0-30.0); Glucose 134 mg/dl (74-100)
[2021-09-30 10:21] LABS: Microalbumin/Creatinine Ratio 6.6
[2021-09-30 10:26] LABS: Creatinine,Urine Random 116 mg/dL (Not Estab.)
== END ==
PROVIDERS: PCP Nurse Practitioner Family; Visit Provider Internal Medicine Nephrology
DX: M81.0 Age-related osteoporosis without current pathological fracture (principal)
CPT/HCPCS: 36415; 80069; 82043; 82306; 82570; 85025

== ENCOUNTER → 2021-10-05 12:24 | Outpatient (POV) | payer BC, SELFPAY | PROVIDERS: Visit Provider Internal Medicine Nephrology | DX: Z00.00 Encounter for general adult medical examination without abnormal findings (principal) ==

== ENCOUNTER → 2022-07-02 10:11 | Outpatient (CLI) | payer BC, SELFPAY ==
[2022-07-02 11:30] LABS: Albumin Level 3.8 g/dl (3.5-5.0); Anion Gap 16.4 mEq/L (5-15); Blood Urea Nitrogen 32 mg/dl (7-17); Calcium 9.2 mg/dl (8.4-10.2); Carbon Dioxide 26 mmol/L (22.0-30.0); Chloride 104 mmol/L (98-107); Estimated Glomerular Filt Rate 30 ml/min (>60); GFR (African American) 36 ML/MIN (>60); Glucose 117 mg/dl (74-100); Phosphorous 2.8 mg/dl (2.5-4.5); Potassium 4.4 mmoL/L (3.5-5.1); Sodium 142 mmol/L (136-145)
[2022-07-02 11:35] LABS: Creatinine,Urine Random 115 mg/dL (Not Estab.)
[2022-07-02 11:41] LABS: Microalbumin/Creatinine Ratio 7.1
== END ==
PROVIDERS: PCP Nurse Practitioner Family; Visit Provider Internal Medicine Nephrology
DX: N18.32 Chronic kidney disease, stage 3b (principal)
CPT/HCPCS: 36415; 80069; 82043; 82570

== ENCOUNTER → 2022-07-05 13:32 | Outpatient (POV) | payer BC, SELFPAY | PROVIDERS: Visit Provider Internal Medicine Nephrology | DX: Z00.00 Encounter for general adult medical examination without abnormal findings (principal) ==

== ENCOUNTER → 2022-08-04 08:26 | Outpatient (CLI) | payer BC, SELFPAY ==
--- NOTE | 2022-08-04 08:26 | MM_ITS ---
PROCEDURE INFORMATION: Exam: MG Bilateral Screening 3D Mammography Exam date and time: 08/04/2022 8:23 AM Age: 67 years old Clinical indication: Screening examination; Additional info: Screening mammogram TECHNIQUE: Imaging protocol: Bilateral Screening tomosynthesis and 2D mammography including computer-aided detection (CAD) when performed. COMPARISON: 1. MG MM DIG SCREENING MAMM BI W/CAD 08/14/2021 10:45 AM 2. MG MM DIG SCREENING MAMM BI W/CAD 08/04/2020 1:03 PM 3. MG MM MAMMO DIGITAL SCREENING W CAD BILAT 08/03/2019 10:23 AM FINDINGS: MAMMOGRAPHY: Breast composition: There are scattered areas of fibroglandular density. Mass: No suspicious masses. Architectural distortion: No suspicious distortion. Calcifications: No suspicious calcifications. Asymmetric density: None. Skin thickening: None. Axillary adenopathy: None. IMPRESSION: No mammographic evidence of malignancy. Annual screening is recommended unless otherwise clinically indicated. ASSESSMENT: BI-RADS Category 1: Negative
== END ==
PROVIDERS: PCP Nurse Practitioner Family; Visit Provider Obstetrics & Gynecology
DX: Z12.31 Encounter for screening mammogram for malignant neoplasm of breast (principal)
CPT/HCPCS: 77063; 77067

== ENCOUNTER → 2022-12-16 10:57 | Outpatient (CLI) | payer OTHER, SELFPAY ==
--- NOTE | 2022-12-16 11:06 | XR_ITS ---
FINAL REPORT CLINICAL HISTORY: INJURY FROM FALL FINDINGS: Left hip Two views were obtained. There is no acute fracture or dislocation. The joint spaces appear normal. No soft tissue abnormality is identified. IMPRESSION: No acute process. Reviewed, Interpreted and Dictated by Tom Aburto MD Transcribed by Leanna Crenshaw Authenticated and [facility]
--- NOTE | 2022-12-16 11:07 | XR_ITS ---
FINAL REPORT CLINICAL HISTORY: INJURY DUE TO FALL FINDINGS: Right hip Three views were obtained. There is no acute fracture or dislocation. There is mild narrowing of the right hip joint space. No soft tissue abnormality is identified. IMPRESSION: No acute process. Reviewed, Interpreted and Dictated by Tom Aburto MD Transcribed by Leanna Crenshaw Authenticated and [facility]
== END ==
PROVIDERS: PCP Nurse Practitioner Family; Visit Provider Nurse Practitioner Family
DX: R10.2 Pelvic and perineal pain (principal); W19.XXXA Unspecified fall, initial encounter
CPT/HCPCS: 73502

== ENCOUNTER → 2022-12-28 10:33 | Outpatient (CLI) | payer MEDICARE, OTHER, SELFPAY ==
--- NOTE | 2022-12-28 10:38 | MR_ITS ---
FINAL REPORT CLINICAL HISTORY: ACUTE PAIN IN FEMALE PELVIS pressure in pelvic area when being francisco since August recent fall in october 2022 FINDINGS: Multiplanar MR images of the pelvis were performed without contrast. There is no fracture or evidence of avascular necrosis. There is a presumed subchondral cyst in the lateral left femoral head with surrounding bone marrow edema. There are mild degenerative changes. No significant joint effusion is seen. The musculature is intact. The tendons are intact. There is no soft tissue mass or cyst identified. IMPRESSION: Presumed subchondral cyst with surrounding bone marrow edema in the lateral left femoral head. Mild degenerative change. Reviewed, Interpreted and Dictated by Veto Brandt III, MD Transcribed by Justin Peace Authenticated and [facility]
== END ==
PROVIDERS: PCP Nurse Practitioner Family; Visit Provider Nurse Practitioner Family
DX: R10.2 Pelvic and perineal pain (principal); S39.93XA Unspecified injury of pelvis, initial encounter
CPT/HCPCS: 72195

== ENCOUNTER → 2023-04-21 07:51 | Outpatient (CLI) | payer MEDICARE, OTHER, SELFPAY ==
--- NOTE | 2023-04-21 | CA_ITS ---
APPROVED REPORT Exam: Exercise Treadmill Technologist: Jackelyn Valdivia, Ht: 5 ft 0 in Wt: 170 lbs BSA: 1.74 m2 HR: 60 bpm BP: 140/56 mmHg Rhythm: NSR, PVC, NON SPECIFIC ST ABN INFERIORLY AND LATERALLY Medical History Medical History: HTN, , Hyperlipidemia, Diabetes Medications: Lisinopril,,,,, Aspirin,,,,, Pantoprazole,,,,, Atorvastatin,,,,, HCTZ,,,,, Flonase,,,,, Estradiol,,,,, AZelastine,,,,, CetIRIizine,,,,, Calcium CaRBONATE,,,,, Metformin ER,,,,, Allergies: CODEINE, ZINC, IRON Cardiac Risk Factors: HTN, Hyperlipidemia, Diabetes , FHX of CAD, Smoking Stress Test Details Test: Domi HR Resting HR: 82 bpm Max Heart Rate (APMHR): 153 bpm Max HR Achieved: 142 bpm Target HR (85% APMHR): 130 bpm % of APMHR: 93 Recovery HR: 81 bpm HR response to stress: Normal HR response to stress BP Resting BP: 140.0/56 mmHg Max BP: 168/64 mmHg Recovery BP: 149.0/67.0 mmHg BP response to stress: Normal blood pressure response to stress. ECG Resting ECG: NSR, PVC, Non-specific ST abnormality in inferolateral leads Stress EC.[address] depression Arrhythmia: PACs, PVCs, ventricular couplet Recovery ECG: Return to baseline within 3 minutes of recovery Recovery Arrhythmia: PVCs Clinical Exercise duration: 03:49 min Highest Stage Achieved: Exercise capacity: 4.6 METs Stress ECG Conclusion PT WALKED 3:49 ON DOMI PROTOCOL. SHE ACHIEVED A TOTAL OF 4.6 METS. SHE HAS POOR EXERCISE CAPAICTY. SHE HAS NORMAL HR AND BP RESPONSE TO EXERCISE. MAX HR: 142 % OF PM: 93% MAX BP: 168/64 METS: 4.6 TEST STOPPED DUE TO: SOA, FATIGUE SOA NO CP OCCASIONAL PACS, PVCS, VENTRICULAR COUPLET MILD EXAGGERATION OF BASELINE ABNS WITH 0.5MM HORIZONTAL ST DEPRESSION CONCLUSION POOR EXERCISE TOLERANCE POSSIBLE ISCHEMIA ON STRESS ECG PACS, PVCS, VENTRICULAR COUPLETS NOTED AT PEAK STRESS Test Summary REST . . . . . . . Sitting REST 04:30 0.0 0.0 82 . 140/ 56 . . Stage 1 01:00 10.0 1.7 109 . . . . Stage 1 02:00 10.0 1.7 124 . 150/ 85 . . Stage 1 03:00 10.0 1.7 130 . 150/ 85 . . Stage 2 00:49 12.0 2.5 131 . . . Stop exercise at 03:49 RECOVERY 01:00 0.0 0.0 126 . . . . RECOVERY 02:00 0.0 0.0 102 . . . . RECOVERY 03:00 0.0 0.0 89 . . . . RECOVERY 04:00 0.0 0.0 86 . 168/ 64 . . RECOVERY 05:00 0.0 0.0 83 . 149/ 67 . . RECOVERY 06:00 0.0 0.0 79 . 149/ 67 . . RECOVERY 07:00 0.0 0.0 81 . 149/ 67 . . RECOVERY 07:47 0.0 0.0 81 . 157/ 67 . . Electronically signed by : Caitie Horvath, 04/26/2023 20:01:20
--- NOTE | 2023-04-21 07:57 | CA_ITS ---
FINAL REPORT TECHNIQUE: Grayscale, color Doppler and duplex Doppler ultrasound of the kidneys, aorta and renal arteries was performed. Multiple velocities were measured. CLINICAL HISTORY: HTN FINDINGS: Aorta velocity: 78 cm/sec Right kidney: 9.4 cm. No evidence of hydronephrosis or mass. Right intrarenal RI: 0.76 Right renal artery velocity: 199 cm/sec Right RAR (Renal artery-Aortic Ratio): 2.6 Left Kidney: 9.3 cm. No evidence of hydronephrosis or mass. Left intrarenal RI: 0.80 Left renal artery velocity: 178 cm/sec. Left RAR (Renal Artery-Aortic Ratio): 2.3 IMPRESSION: Less than 60% renal artery stenosis on the right. No evidence of renal artery stenosis on the left. CT angiogram or postcontrast MR angiogram would be more sensitive for evaluation of possible renal artery stenosis. Reviewed, Interpreted and Dictated by Veto Brandt III, MD Transcribed by Leanna Crenshaw Authenticated and [facility]
--- NOTE | 2023-04-21 07:58 | CA_ITS ---
APPROVED REPORT EXAM: Comprehensive 2D, Doppler, and color-flow Echocardiogram Operations And Maintenance Supervisor: Vita Herbert RVT Ht: 5 ft 0 in Wt: 170lbs BSA: 1.74 BP: 140/70 mmHg Rhythm: NSR Indications: ABN EKG,PALPITATIONS,HTN TDS-PT BODY HABITUS-OVERLAYING LUNG Echo Procedure The patient underwent an Exercise Stress Test using the Ryan Protocol. Blood pressure, heart rate, and EKG were monitored. An Echocardiogram was performed by compliance field technician in four stages in quad fashion. At peak stress, four selected images were obtained and placed side by side with resting images for comparison. Stress Test Details Test: Exercise stress testing was performed using a Ryan protocol. HR Resting HR: 82 bpm Max Heart Rate (APMHR): 153 bpm Max HR Achieved: 142 bpm Target HR (85% APMHR): 130 bpm % of APMHR: 93 Recovery HR: 81 bpm HR response to stress: Normal HR response to stress BP Resting BP: 140/56 mmHg Max BP: 168/64 mmHg BP response to stress: Normal blood pressure response to stress. ECG Resting ECG: Tiffany sinus rhythm, non-specific ST changes in inferolateral leads Stress EC.[address] depression Arrhythmia: Occasional PACs, PVCs, ventricular couplets Recovery ECG: Return to baseline within 3 minutes of recovery Echo Findings The Pre-Stress Echocardiogram showed normal left ventricular contractility with an estimated Ejection Fraction of about 60-65%. The Pre-Stress Echocardiogram demonstrated wall motion abnormality in the basal inferoseptal wall. The Post-Stress Echocardiogram showed hyperdynamic left ventricular contractility with an estimated Ejection Fraction of about 70%. The Post-Stress Echocardiogram demonstrated wall motion abnormality in the basal inferoseptal wall. Other Information Study Quality: Adequate Conclusion Poor exercise capacity. Occasional PACs, PVCs, and ventricular couplets noted at peak stress. Good augmentation of LV systolic function with stress. There was mild hypokinesis of the basal inferoseptal LV wall present at rest, with no significant change at peak stress. Overall, the stress echo demonstrates no evidence of new wall motion abnormalities at peak stress. No echocardiographic evidence for exercise induced ischemia. No prior study available for comparison. Electronically signed by : Caitie Horvath, 04/26/2023 20:11:05
== END ==
PROVIDERS: PCP Nurse Practitioner Family; Visit Provider Nurse Practitioner
DX: I10 Essential (primary) hypertension (principal); R94.31 Abnormal electrocardiogram [ECG] [EKG]; R00.2 Palpitations; E78.5 Hyperlipidemia, unspecified; E11.9 Type 2 diabetes mellitus without complications; Z79.84 Long term (current) use of oral hypoglycemic drugs; Z82.49 Family history of ischemic heart disease and other diseases of the circulatory system
CPT/HCPCS: 93017; 93350; 93976

== ENCOUNTER → 2023-04-25 12:59 | Outpatient (POV) | payer MEDICARE, SELFPAY | PROVIDERS: Visit Provider Nurse Practitioner | DX: Z00.00 Encounter for general adult medical examination without abnormal findings (principal) ==

== ENCOUNTER → 2023-05-04 12:12 | Outpatient (CLI) | payer MEDICARE, SELFPAY ==
[2023-05-03 14:45] LABS: Coronavirus 19, PCR Not Detected (NotDetected); Influenza A, PCR Not Detected (NotDetected); Influenza B, PCR Not Detected (NotDetected)
[2023-05-03 16:06] LABS: Chloride 104 mmol/L (98-107)
[2023-05-03 16:07] LABS: Potassium 4.5 mmoL/L (3.5-5.1); Sodium 143 mmol/L (136-145)
[2023-05-03 16:09] LABS: Alanine Aminotransferase 27 U/L (12-78); Aspartate Amino Transferase 32 U/L (14-36); Bilirubin,Total 0.6 mg/dl (0.2-1.3); Blood Urea Nitrogen 22 mg/dl (7-17); Estimated Glomerular Filt Rate 28 ml/min (>60); GFR (African American) 34 ML/MIN (>60)
[2023-05-03 16:10] LABS: Albumin Level 4.6 g/dl (3.5-5.0); Albumin/Globulin Ratio 1.5 (1.1-1.8); Alkaline Phosphatase 74 U/L (38-126); Anion Gap 19.5 mEq/L (5-15); Calcium 10.1 mg/dl (8.4-10.2); Carbon Dioxide 24 mmol/L (22.0-30.0); Globulin 3.1 g/dL (1.3-3.2); Glucose 132 mg/dl (74-100); Total Protein,Serum 7.7 g/dl (6.3-8.2)
[2023-05-03 18:31] LABS: Hemoglobin A1C 8.2 % (4.0-6.0)
== END ==
PROVIDERS: PCP Nurse Practitioner Family; Visit Provider Nurse Practitioner Family
DX: E11.9 Type 2 diabetes mellitus without complications (principal); N18.9 Chronic kidney disease, unspecified; R05.9 Cough, unspecified; R51.9 Headache, unspecified; R68.83 Chills (without fever); Z79.84 Long term (current) use of oral hypoglycemic drugs; Z20.822 Contact with and (suspected) exposure to COVID-19
CPT/HCPCS: 80053; 83036; 87636

== ENCOUNTER → 2023-07-11 09:27 | Outpatient (CLI) | payer MEDICARE, SELFPAY ==
[2023-07-11 09:37] LABS: Microscopic, Urine URINE MICROSCOPIC (MICROSCOPIC)
[2023-07-11 10:00] LABS: Appearance,Urine SL CLOUDY (Clear); Bilirubin,Urine Negative (Negative); Blood, Urine TRACE-I (Negative); Color,Urine YELLOW (Yellow); Glucose,Urine (UA) 3+ (Negative); Ketones,Urine Negative (Negative); Leukocyte Esterase,Urine 1+ (Negative); Nitrate,Urine Negative (Negative); Protein,Urine Negative (Negative); Urobilinogen,Urine 0.2 EU/dl (0.2)
[2023-07-11 10:09] LABS: Basophils % 0.4 % (0.1-2.0); Eosinophils # 0.3 K/mm3 (0.0-0.4); Eosinophils % 3.3 % (0.1-12.0); Hematocrit 44.2 % (37.0-47.0); Hemoglobin 14.6 g/dL (12.2-16.2); Lymphocytes # 2.8 K/mm3 (0.7-4.5); Lymphocytes % 36.2 % (10-50); Mean Corpuscular Hemoglobin 29.2 pg (27.0-31.2); Mean Corpuscular Volume 88.7 fl (81-99); Mean Platelet Volume 9.2 fl (7.4-10.4); Monocytes # 0.4 K/mm3 (0.1-1.0); Monocytes % 4.7 % (1.7-9.3); Neutrophils # 4.2 K/mm3 (1.8-7.8); Neutrophils % 55.4 % (37.0-80.0); Platelet Count 237 K/mm3 (142-424); Red Blood Count 4.98 M/mm3 (4.20-5.40); Red Cell Distribution Width 13.5 % (11.5-17.5); White Blood Count 7.7 K/mm3 (4.8-10.8)
[2023-07-11 10:13] LABS: Bacteria,Urine 1+ /lpf; RBC,Urine Occasional #/hpf (0-3); Squamous Epithelial Cell,Urine Occasional #/hpf (0-5); WBC,Urine TNTC #/hpf (0-3)
[2023-07-11 10:44] LABS: Alanine Aminotransferase 38 U/L (12-78); Albumin Level 4.9 g/dl (3.5-5.0); Albumin/Globulin Ratio 1.7 (1.1-1.8); Alkaline Phosphatase 63 U/L (38-126); Aspartate Amino Transferase 40 U/L (14-36); Bilirubin,Total 0.6 mg/dl (0.2-1.3); Blood Urea Nitrogen 28 mg/dl (7-17); Calcium 9.7 mg/dl (8.4-10.2); Carbon Dioxide 22 mmol/L (22.0-30.0); Chloride 103 mmol/L (98-107); Chol/HDL Ratio 3.5 (1-3.5); Cholesterol 166 mg/dl (140-200); Estimated Glomerular Filt Rate 26 ml/min (>60); GFR (African American) 32 ML/MIN (>60); Globulin 2.9 g/dL (1.3-3.2); Glucose 152 mg/dl (74-100); HDL Cholesterol 48 mg/dl (40-60); Sodium 136 mmol/L (136-145); Total Protein,Serum 7.8 g/dl (6.3-8.2); Triglycerides 205 mg/dl (30-150); VLDL Cholesterol 41 mg/dL (0-40)
[2023-07-11 10:46] LABS: Magnesium 1.5 mg/dl (1.6-2.3)
[2023-07-11 10:46] LABS: Albumin Level 4.8 g/dl (3.5-5.0); Blood Urea Nitrogen 27 mg/dl (7-17); Calcium 9.7 mg/dl (8.4-10.2); Carbon Dioxide 21 mmol/L (22.0-30.0); Chloride 103 mmol/L (98-107); Estimated Glomerular Filt Rate 25 ml/min (>60); GFR (African American) 30 ML/MIN (>60); Glucose 152 mg/dl (74-100); Phosphorous 3.8 mg/dl (2.5-4.5); Sodium 136 mmol/L (136-145)
[2023-07-11 10:55] LABS: Direct LDL Cholesterol 71.54 mg/dL (100-129)
[2023-07-11 10:55] LABS: Intact Parathyroid Hormone 91.8 pg/mL (7.5-53.5)
[2023-07-11 12:42] LABS: Hemoglobin A1C 7.8 % (4.0-6.0)
[2023-07-11 13:18] LABS: Creatinine,Urine Random 55 mg/dL (Not Estab.)
== END ==
PROVIDERS: PCP Nurse Practitioner Family; Visit Provider Nurse Practitioner
DX: E11.9 Type 2 diabetes mellitus without complications (principal); E78.5 Hyperlipidemia, unspecified; I10 Essential (primary) hypertension; N18.32 Chronic kidney disease, stage 3b; R82.90 Unspecified abnormal findings in urine; B96.1 Klebsiella pneumoniae [K. pneumoniae] as the cause of diseases classified elsewhere
CPT/HCPCS: 36415; 80053; 80061; 80069; 81001; 82043; 82306; 82570; 83036; 83735; 83970; 84155; 85025; 87086

== ENCOUNTER → 2023-10-11 07:37 | Outpatient (CLI) | payer MEDICARE, SELFPAY | PROVIDERS: PCP Nurse Practitioner Family; Visit Provider Nurse Practitioner Family | DX: R29.818 Other symptoms and signs involving the nervous system (principal); G47.30 Sleep apnea, unspecified | CPT/HCPCS: G0399 ==

== ENCOUNTER 2023-11-23 09:49 | Outpatient (CLI) | payer MEDICARE, SELFPAY ==
--- NOTE | 2023-11-23 09:49 | MM_ITS ---
PROCEDURE INFORMATION: Exam: MG Bilateral Screening 3D Mammography Exam date and time: 11/23/2023 9:59 AM Age: 68 years old Clinical indication: Screening mammogram TECHNIQUE: Imaging protocol: Bilateral Screening tomosynthesis and 2D mammography including computer-aided detection (CAD) when performed. COMPARISON: 1. MG MM DIG SCREENING MAMM BI W/CAD 08/04/2022 8:23 AM 2. MG MM DIG SCREENING MAMM BI W/CAD 08/14/2021 10:45 AM 3. MG MM DIG SCREENING MAMM BI W/CAD 08/04/2020 1:03 PM 4. MG MM MAMMO DIGITAL SCREENING W CAD BILAT 08/03/2019 10:23 AM FINDINGS: MAMMOGRAPHY: Breast composition: There are scattered areas of fibroglandular density. Mass: None. Architectural distortion: No new or suspicious architectural distortion. Calcifications: No new or suspicious calcifications are present Asymmetric density: No new or suspicious asymmetric density is present Skin thickening: None. Axillary adenopathy: None. IMPRESSION: No mammographic evidence of malignancy. Recommend annual screening mammography unless otherwise clinically indicated. ASSESSMENT: BI-RADS category 1: Negative.
[2023-11-23 10:52] LABS: Microscopic, Urine URINE MICROSCOPIC (MICROSCOPIC)
[2023-11-23 11:31] LABS: Hematocrit 40.4 % (37.0-47.0); Hemoglobin 12.8 g/dL (12.2-16.2); Mean Corpuscular HGB Conc 31.7 g/dL (31.8-35.4); Mean Corpuscular Hemoglobin 29.2 pg (27.0-31.2); Mean Corpuscular Volume 92.1 fl (81-99); Platelet Count 251 K/mm3 (142-424); Red Blood Count 4.39 M/mm3 (4.20-5.40); Red Cell Distribution Width 13.6 % (11.5-17.5); White Blood Count 8.7 K/mm3 (4.8-10.8)
[2023-11-23 11:33] LABS: Hemoglobin A1C 6.4 % (4.0-6.0)
[2023-11-23 11:33] LABS: Creatinine,Urine Random 34 mg/dL (Not Estab.)
[2023-11-23 12:03] LABS: Albumin Level 4.6 g/dl (3.5-5.0); Anion Gap 12.3 mEq/L (5-15); Blood Urea Nitrogen 20 mg/dl (7-17); Calcium 10.3 mg/dl (8.4-10.2); Carbon Dioxide 26 mmol/L (22.0-30.0); Chloride 102 mmol/L (98-107); Estimated Glomerular Filt Rate 35 ml/min (>60); GFR (African American) 42 ML/MIN (>60); Glucose 118 mg/dl (74-100); Phosphorous 3.6 mg/dl (2.5-4.5); Potassium 4.3 mmoL/L (3.5-5.1); Sodium 136 mmol/L (136-145)
[2023-11-23 12:05] LABS: Alanine Aminotransferase 33 U/L (12-78); Albumin Level 4.5 g/dl (3.5-5.0); Albumin/Globulin Ratio 1.9 (1.1-1.8); Alkaline Phosphatase 65 U/L (38-126); Anion Gap 12.3 mEq/L (5-15); Aspartate Amino Transferase 37 U/L (14-36); Bilirubin,Total 0.8 mg/dl (0.2-1.3); Blood Urea Nitrogen 20 mg/dl (7-17); Calcium 10.2 mg/dl (8.4-10.2); Carbon Dioxide 26 mmol/L (22.0-30.0); Chloride 102 mmol/L (98-107); Chol/HDL Ratio 3.1 (1-3.5); Cholesterol 151 mg/dl (140-200); Estimated Glomerular Filt Rate 37 ml/min (>60); GFR (African American) 45 ML/MIN (>60); Globulin 2.4 g/dL (1.3-3.2); Glucose 117 mg/dl (74-100); HDL Cholesterol 49 mg/dl (40-60); Magnesium 1.5 mg/dl (1.6-2.3); Potassium 4.3 mmoL/L (3.5-5.1); Sodium 136 mmol/L (136-145); Total Protein,Serum 6.9 g/dl (6.3-8.2); Triglycerides 135 mg/dl (30-150); VLDL Cholesterol 27 mg/dL (0-40)
[2023-11-23 12:16] LABS: Intact Parathyroid Hormone 74.1 pg/mL (7.5-53.5)
[2023-11-23 12:16] LABS: Direct LDL Cholesterol 66.66 mg/dL (100-129)
[2023-11-23 12:20] LABS: 25-OH Vitamin D, Total 51.2 ng/mL (30-100)
[2023-11-23 12:35] LABS: Thyroid Stimulating Hormone 2.51 uIU/mL (0.465-4.68)
[2023-11-23 15:42] LABS: Appearance,Urine CLEAR (Clear); Bilirubin,Urine Negative (Negative); Blood, Urine TRACE-I (Negative); Color,Urine YELLOW (Yellow); Glucose,Urine (UA) Negative (Negative); Ketones,Urine Negative (Negative); Leukocyte Esterase,Urine 1+ (Negative); Nitrate,Urine Negative (Negative); Protein,Urine Negative (Negative); Urobilinogen,Urine 0.2 EU/dl (0.2)
[2023-11-23 16:15] LABS: Bacteria,Urine 1+ /lpf; Squamous Epithelial Cell,Urine Occasional #/hpf (0-5)
[2023-11-23 16:16] LABS: RBC,Urine Occasional #/hpf (0-3)
== END 2023-11-23 23:59 ==
LOC: RAD 09:49
PROVIDERS: Nurse Practitioner; PCP Nurse Practitioner Family; Visit Provider Nurse Practitioner Family
DX: Z12.31 Encounter for screening mammogram for malignant neoplasm of breast (principal); E78.5 Hyperlipidemia, unspecified; E11.9 Type 2 diabetes mellitus without complications; I10 Essential (primary) hypertension; N18.9 Chronic kidney disease, unspecified; Z79.84 Long term (current) use of oral hypoglycemic drugs; Z79.899 Other long term (current) drug therapy; E66.9 Obesity, unspecified; Z68.32 Body mass index [BMI] 32.0-32.9, adult; B96.29 Other Escherichia coli [E. coli] as the cause of diseases classified elsewhere
CPT/HCPCS: 36415; 77063; 77067; 80053; 80061; 80069; 81001; 82043; 82306; 82570; 83036; 83735; 83970; 84156; 84443; 85014; 85018; 85048; 85049; 87086

== ENCOUNTER 2023-12-15 09:26 | Outpatient (CLI) | payer MEDICARE, SELFPAY ==
--- OUTSIDE RECORDS SUMMARY | 2023-12-15 09:30 | XMS_ITS ---
Author Name Surinder Karimi Address [address] [place] [address] Organization Unknown Address [address] [place] [id number] ALLERGIES AND ADVERSE REACTIONS No information ASSESSMENT No information CHIEF COMPLAINT No information MEDICATIONS No information OBJECTIVE DATA No information PHYSICAL EXAMINATION No information TREATMENT PLAN Planned Care Start Date Provider Encounter for Check-up [phone] [facility]ider PROBLEMS No information RESULTS No information REVIEW OF SYSTEMS No information SUBJECTIVE DATA No information VITAL SIGNS No information
[2023-12-15 09:35] LABS: Microscopic, Urine URINE MICROSCOPIC (MICROSCOPIC)
[2023-12-15 10:14] LABS: Appearance,Urine CLOUDY (Clear); Blood, Urine Negative (Negative); Color,Urine YELLOW (Yellow); Glucose,Urine (UA) Negative (Negative); Ketones,Urine TRACE (Negative); Leukocyte Esterase,Urine 2+ (Negative); Nitrate,Urine POSITIVE (Negative); Protein,Urine Negative (Negative); Specific Gravity, Urine 1.015 (1.005-1.030); Urobilinogen,Urine 0.2 EU/dl (0.2)
[2023-12-15 10:18] LABS: Bilirubin,Urine 1+ (Negative); Hematocrit 40.7 % (37.0-47.0); Hemoglobin 13.1 g/dL (12.2-16.2); Mean Corpuscular HGB Conc 32.2 g/dL (31.8-35.4); Mean Corpuscular Hemoglobin 29.9 pg (27.0-31.2); Mean Corpuscular Volume 92.8 fl (81-99); Platelet Count 264 K/mm3 (142-424); Red Blood Count 4.39 M/mm3 (4.20-5.40); Red Cell Distribution Width 13.5 % (11.5-17.5); White Blood Count 8.5 K/mm3 (4.8-10.8)
[2023-12-15 10:23] LABS: Creatinine,Urine Random 179 mg/dL (Not Estab.)
[2023-12-15 10:29] LABS: Bacteria,Urine 4+ /lpf; Squamous Epithelial Cell,Urine Occasional #/hpf (0-5); WBC,Urine TNTC #/hpf (0-3)
[2023-12-15 10:38] LABS: Microalbumin/Creatinine Ratio 29.6
[2023-12-15 11:19] LABS: Albumin Level 4.6 g/dl (3.5-5.0); Anion Gap 14.5 mEq/L (5-15); Blood Urea Nitrogen 25 mg/dl (7-17); Calcium 10.2 mg/dl (8.4-10.2); Carbon Dioxide 24 mmol/L (22.0-30.0); Chloride 107 mmol/L (98-107); Estimated Glomerular Filt Rate 35 ml/min (>60); GFR (African American) 42 ML/MIN (>60); Glucose 117 mg/dl (74-100); Phosphorous 3.3 mg/dl (2.5-4.5); Potassium 4.5 mmoL/L (3.5-5.1); Sodium 141 mmol/L (136-145)
[2023-12-15 11:31] LABS: Intact Parathyroid Hormone 53.9 pg/mL (7.5-53.5)
[2023-12-15 11:35] LABS: 25-OH Vitamin D, Total 75.2 ng/mL (30-100)
== END 2023-12-15 23:59 | disposition home or self-care (01) ==
LOC: LAB 09:28
PROVIDERS: PCP Nurse Practitioner Family; Visit Provider Nurse Practitioner
DX: N18.32 Chronic kidney disease, stage 3b (principal); B96.29 Other Escherichia coli [E. coli] as the cause of diseases classified elsewhere; R82.90 Unspecified abnormal findings in urine
CPT/HCPCS: 36415; 80069; 81001; 82043; 82306; 82570; 83970; 84156; 85014; 85018; 85048; 85049; 87086

== ENCOUNTER 2023-12-19 11:32 | Outpatient (POV) | payer MEDICARE, SELFPAY | END 2023-12-19 23:59 | disposition home or self-care (01) | LOC: SC 11:32 | PROVIDERS: Visit Provider Nurse Practitioner | DX: Z00.00 Encounter for general adult medical examination without abnormal findings (principal) ==

== ENCOUNTER 2024-02-12 16:52 | Emergency (ER) | payer MEDICARE, SELFPAY ==
--- NOTE | 2024-02-12 16:57 | XR_ITS ---
PROCEDURE INFORMATION: Exam: XR Left Wrist Exam date and time: 02/12/2024 4:55 PM Age: 68 years old Clinical indication: Pain; Wrist; Left TECHNIQUE: Imaging protocol: Radiologic exam of the left wrist. Views: 3 or more views. COMPARISON: CR Hand L 02/12/2024 4:52 PM FINDINGS: Bones/joints: There is no evidence of acute fracture or dislocation. Minor degenerative changes involve the 1st carpometacarpal joint manifest by mild subchondral sclerosis. Soft tissues: No significant soft tissue edema. No subcutaneous emphysema or radiopaque foreign bodies. Subtle chondrocalcinosis is present within the intercarpal joints. IMPRESSION: 1. No acute posttraumatic osseous injury. 2. Subtle chondrocalcinosis within the intercarpal joints. 3. Minor degenerative changes of the 1st carpal/metacarpal joint.
--- NOTE | 2024-02-12 16:57 | XR_ITS ---
PROCEDURE INFORMATION: Exam: XR Left Hand Exam date and time: 02/12/2024 4:52 PM Age: 68 years old Clinical indication: Pain; Hand; Left; Additional info: Pain. Mainly along 1st metacarpal, digit TECHNIQUE: Imaging protocol: Radiologic exam of the left hand. Views: 3 or more views. COMPARISON: No relevant prior studies available. FINDINGS: Bones/joints: There is no evidence of acute fracture or dislocation. Minor degenerative changes involve the 1st carpal/metacarpal joint manifest by subchondral sclerosis. The minor marginal spurring involves the 1st DIP joint suggesting minimal degenerative change. Joint spaces appear otherwise preserved. Soft tissues: No significant soft tissue edema. No subcutaneous emphysema or radiopaque foreign bodies. IMPRESSION: No acute posttraumatic osseous injury.
[2024-02-12 17:00] VITALS: PULSE 71; RESP 18; TEMP 36.9; O2SAT 99; BMI 31.2
--- NOTE | 2024-02-12 17:26 | EXP.UTC ---
Discharge Plan Disposition Patient Disposition: Home, Self-Care Condition: Good Prescriptions Prescriptions: New methylprednisolone 4 mg Tablets,Dose Pack 4 mg PO DIRECTED 6 Days Qty: 21 0RF Rx Instructions: Take 1 pack as directed for 6 days No Action (DME) blood-glucose meter [True Metrix Air Glucose Meter] Kit See Rx Instructions .ROUTE .MEDSUPPLY Qty: 1 Rx Instructions: As directed multivitamin Tablet 1 tab PO DAILY magnesium gluconate [Mag-G] 27 mg magnesium (500 mg) tablet 27 mg PO DAILY calcium-vit D3-mag gly-zinc 400 mg-83.3 mcg -166.7 mg capsule 1 cap PO DAILY bisoprolol fumarate 5 mg tablet 2.5 mg PO DAILY atorvastatin 20 mg tablet 20 mg PO DAILY 90 Days Qty: 90 2RF pantoprazole 40 mg tablet,delayed release (DR/EC) 40 mg PO DAILY 90 Days Qty: 90 1RF cetirizine 10 mg tablet 10 mg PO DAILY 90 Days Qty: 90 1RF (DME) lancets [TRUEplus Lancets] 33 gauge misc See Rx Instructions .ROUTE .MEDSUPPLY Qty: 300 1RF Rx Instructions: As directed TID (DME) True Metrix Glucose Test Strip Strip See Rx Instructions .ROUTE .MEDSUPPLY Qty: 300 1RF Rx Instructions: As directed TID losartan-hydrochlorothiazide 50-12.5 mg tablet 1 tab PO DAILY 90 Days Qty: 90 1RF fluticasone propionate [Flonase Allergy Relief] 50 mcg/actuation spray,suspension 1 spray intranasal DAILY PRN (Reason: allergies) Rx Instructions: administer into each nostril oryaxebe-yoae-zqyup-oreg-capry 100 mg-150 mg- 50 mg-150 mg capsule 1 cap PO DAILY amlodipine 10 mg tablet 10 mg PO DAILY 90 Days Qty: 90 2RF Ozempic 0.25 mg or 0.5 mg (2 mg/3 mL) pen injector 0.25 mg SQ WEEKLY 90 Days Qty: 4.784 2RF aspirin 81 MG tablet,delayed release (DR/EC) 81 mg PO DAILY metformin 500 mg tablet extended release 24 hr 500 mg PO DAILY Referrals Follow up/Referrals: Noemi Gonsales APRN [Primary Care Provider] - See instructions Activity Restrictions/Add. Instructions Additional Instructions/Restrictions: Rest the extremity, Elevate the extremity as tolerated while you are resting. Follow up with Dr. Major (orthopedics). I put in a referral but you need to call his office and schedule an appointment. Follow up with your regular doctor. GO TO THE ER FOR ANY WORSENING SYMPTOMS Clinical Impressions Clinical Impression: Tendinitis of left wrist Instructions Patient Instructions: DI for Tendinitis, Methylprednisolone Discharge ED Provider: Abhishek Kaminski [facility] General Stated complaint: left hand is hurting Mode of Arrival: Ambulatory Source of Information: Patient Limitations: No Limitations Time Seen by Provider: 02/12/24 17:26 Description of Symptoms (Recalled from Triage Doc. by RN): Pt's symptoms are left wrist pain. Its been going on over 2 months. HEENT Symptoms (Recalled from RN notes): No Resp Symptoms (Recalled from RN notes): No Skin Symptoms (Recalled from RN notes): No MS Symptoms (Recalled from RN notes): Yes Functional Status (Recalled from RN notes): n/a History of Present Illness Provider Complaint: She states that for the past 3 weeks she has had left wrist pain that is worse with certain movements. She denies injuries. Related Data Home Medications Medication Instructions Recorded Confirmed aspirin 81 mg tablet,delayed 81 mg PO DAILY Blood thinner 02/16/18 02/12/24 release blood-glucose meter (True Metrix #1 ea 05/03/23 12/12/23 Air Glucose Meter kit) fluticasone propionate 50 1 spray intranasal DAILY PRN 05/03/23 02/12/24 mcg/actuation nasal allergies spray,suspension (Flonase Allergy Relief) magnesium gluconate 27 mg 27 mg PO DAILY 05/03/23 02/12/24 magnesium (500 mg) tablet (Mag-G) multivitamin 1 tab PO DAILY 05/03/23 02/12/24 calcium 400 mg-vit D3 83.3 1 cap PO DAILY 07/15/23 02/12/24 mcg-magnesium 166.7 mg-zinc 16.7 mg capsule turmeric 100 mg-flori 150 1 cap PO DAILY 07/15/23 02/12/24 mg-olive 50 mg-oreg 150 mg-capryl capsule bisoprolol fumarate 5 mg tablet 2.5 mg PO DAILY 11/23/23 02/12/24 metformin 500 mg tablet,extended 500 mg PO DAILY 02/12/24 02/12/24 release 24 hr Previous Rx's Medication Instructions Recorded amlodipine 10 mg tablet 10 mg PO DAILY 90 days #90 tabs 05/10/23 semaglutide 0.25 mg or 0.5 mg (2 0.25 mg (0.368 mL) SQ WEEKLY 90 09/05/23 mg/3 mL) subcutaneous pen injector days #4.784 mL (Ozempic) atorvastatin 20 mg tablet 20 mg PO DAILY CHOLETSEROL 90 days 11/23/23 #90 tabs blood sugar diagnostic (True #300 ea 11/23/23 Metrix Glucose Test Strip) cetirizine 10 mg tablet 10 mg PO DAILY 90 days #90 tabs 11/23/23 lancets 33 gauge (TRUEplus Lancets) #300 ea 11/23/23 losartan 50 mg-hydrochlorothiazide 1 tab PO DAILY 90 days #90 tabs 11/23/23 12.5 mg tablet pantoprazole 40 mg tablet,delayed 40 mg PO DAILY GERD 90 days #90 11/23/23 release tabs methylprednisolone 4 mg tablets in 4 mg PO DIRECTED 6 days #21 tabs 02/12/24 a dose pack Allergies Allergy/AdvReac Type Severity Reaction Status Date / Time codeine Allergy Verified 02/12/24 17:14 iron AdvReac Verified 02/12/24 17:14 Worker's Comp Is this a Worker's Comp case?: No [facility] Disclaimer: The information contained in this section may have been updated after the patient was seen, as this information can be updated by other users. 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 Surgical History History of tubal ligation History of knee surgery History of cholecystectomy History of tonsillectomy History of hysterectomy Family History Other Coronary artery disease Diabetes Social History Smoking Status: Former smoker alcohol intake: current alcohol intake frequency: holidays/special occasions only substance use type: denies use current occupational status: other Travel in the last 8 weeks: Inside the [place] household members: family housing: house ROS Obtained: Yes All systems reviewed & no additional complaints except as documented Constitutional Constitutional: Denies chills and Denies fever(s) Eyes Eyes: Denies eye discharge ENT Ears, Nose, Mouth, and Throat: Denies dizziness, Denies otalgia and Denies sore throat Cardiovascular Cardiovascular: Denies chest pain Respiratory Respiratory: Denies shortness of breath, Denies chest congestion, Denies cough, Denies stridor and Denies wheezing Gastrointestinal Gastrointestingal: Denies nausea or vomiting Musculoskeletal Musculoskeletal: Reports as per HPI Integumentary/Breasts Skin/Breast: Denies redness, Denies rash and Denies wounds Neurologic Neurologic: Denies dizziness and Denies paresthesias Allergic/Immunologic Allergic/Immunologic: Denies wheezing Physical Exam General General appearance: alert and in no apparent distress Head Head exam: atraumatic, normocephalic and normal inspection Eye Eye exam: Present normal appearance, PERRL and EOMI ENT ENT exam: Present normal exam, normal oropharynx, mucous membranes moist, TM's normal bilaterally and normal external ear exam Neck Neck exam: Present normal inspection, full ROM and trachea midline; Absent meningismus or lymphadenopathy Chest Chest inspection: Present normal inspection and symmetric chest wall rise; Absent tenderness Respiratory Respiratory exam: Present normal lung sounds bilaterally; Absent respiratory distress Cardiovascular Cardiovascular exam: Present regular rate and normal rhythm; Absent JVD Abdominal Exam Abdominal exam: Present soft and normal bowel sounds; Absent distention, tenderness or guarding Extremities Exam Extremities exam: Present normal capillary refill; Absent calf tenderness Expanded Upper Extremity Exam Left: Shoulder exam: Present normal inspection, full ROM and tenderness over AC joint; Absent tenderness Arm exam: Present normal inspection and full ROM; Absent tenderness Elbow exam: Present normal inspection and full ROM; Absent tenderness Forearm/Wrist exam: Present full ROM and tenderness; Absent swelling, abrasion, laceration, ecchymosis, deformity, crepitus, dislocation, erythema, tenderness over anatomical snuff box or pain with axial thumb loading Hand exam: Present full ROM and tenderness; Absent swelling, abrasion, laceration, skin avulsion, ecchymosis, deformity, crepitus, dislocation, erythema, amputation, nail avulsion or subungual hematoma Neuromotor exam: Normal wrist extension, thumb opposition, thumb IP flexion, thumb adduction and fingers 2-5 abduction Neurosensory exam: Normal radial nerve, ulnar nerve and median nerve Vascular exam: Normal capillary refill, radial pulse and ulnar pulse Back Exam Back exam: Present normal inspection; Absent tenderness Neurological Exam Neurological exam: Present alert and oriented X3 Psychiatric Psychiatric exam: Present normal affect and normal mood Skin Skin exam: Present warm, dry, intact and normal color Lymphatic Lymphatic Findings: no adenopathy Medical Decision Making Medical Records Medical records reviewed: No I reviewed the patient's medical records. Guero Inquiry Pt receiving controlled substance: No Vital Signs: 02/12/24 17:00 Temperature 98.4 F Temperature Source Oral Pulse Rate [Right Radial] 71 Respiratory Rate 18 02 Sat by Pulse Oximetry 99 Oxygen Delivery Method Room Air Orders (Tests/Meds): ORDERS Category Date Time Status Wrist XR left minimum 3 views [XR wrist LT min 3V] Stat Exams 02/12/24 16:57 Taken XR hand LT min 3V Stat Exams 02/12/24 16:57 Taken Radiology Data #1: Image(s): Wrist Image Reviewed: Yes I reviewed the patient's radiology image and Yes I have reviewed radiologist's interpretation Preliminary Findings: No Fracture Seen
[2024-02-12 17:47] VITALS: BP 136/88; PULSE 71; RESP 18; TEMP 36.9; O2SAT 99
== END 2024-02-12 17:47 | disposition home or self-care (01) ==
PROVIDERS: Emergency Provider Nurse Practitioner Family; PCP Nurse Practitioner Family
DX: M25.532 Pain in left wrist (principal); M67.834 Other specified disorders of tendon, left wrist
CPT/HCPCS: 73110; 73130; 99212; 99214; G0463

== ENCOUNTER 2024-02-21 11:45 | Outpatient (CLI) | payer MEDICARE, SELFPAY ==
[2024-02-21 12:48] LABS: Alanine Aminotransferase 30 U/L (12-78); Albumin Level 4.7 g/dl (3.5-5.0); Albumin/Globulin Ratio 1.9 (1.1-1.8); Alkaline Phosphatase 63 U/L (38-126); Anion Gap 13.2 mEq/L (5-15); Aspartate Amino Transferase 30 U/L (14-36); Bilirubin,Total 0.5 mg/dl (0.2-1.3); Blood Urea Nitrogen 25 mg/dl (7-17); Calcium 10.9 mg/dl (8.4-10.2); Carbon Dioxide 28 mmol/L (22.0-30.0); Chloride 103 mmol/L (98-107); Chol/HDL Ratio 2.2 (1-3.5); Cholesterol 173 mg/dl (140-200); Estimated Glomerular Filt Rate 32 ml/min (>60); GFR (African American) 39 ML/MIN (>60); Globulin 2.5 g/dL (1.3-3.2); Glucose 98 mg/dl (74-100); HDL Cholesterol 77 mg/dl (40-60); Potassium 4.2 mmoL/L (3.5-5.1); Sodium 140 mmol/L (136-145); Total Protein,Serum 7.2 g/dl (6.3-8.2); Triglycerides 128 mg/dl (30-150); VLDL Cholesterol 26 mg/dL (0-40)
[2024-02-21 12:59] LABS: Direct LDL Cholesterol 72.11 mg/dL (100-129)
[2024-02-21 13:53] LABS: Hemoglobin A1C 6.5 % (4.0-6.0)
== END 2024-02-21 23:59 | disposition home or self-care (01) ==
LOC: LAB.DROPOF 11:46
PROVIDERS: PCP Nurse Practitioner Family; Visit Provider Nurse Practitioner Family
DX: N18.9 Chronic kidney disease, unspecified (principal); E11.9 Type 2 diabetes mellitus without complications; E78.5 Hyperlipidemia, unspecified; E78.2 Mixed hyperlipidemia
CPT/HCPCS: 80053; 80061; 82043; 83036; 84443

== ENCOUNTER 2024-05-18 09:07 | Outpatient (CLI) | payer MEDICARE, SELFPAY ==
[2024-05-18 09:52] LABS: Basophils % 0.2 % (0.1-2.0); Eosinophils # 0.3 K/mm3 (0.0-0.4); Hemoglobin 13.7 g/dL (12.2-16.2); Lymphocytes # 2.3 K/mm3 (0.7-4.5); Lymphocytes % 27.1 % (10-50); Mean Corpuscular HGB Conc 31.8 g/dL (31.8-35.4); Mean Corpuscular Hemoglobin 29.5 pg (27.0-31.2); Mean Corpuscular Volume 92.7 fl (81-99); Mean Platelet Volume 7.8 fl (7.4-10.4); Monocytes # 0.4 K/mm3 (0.1-1.0); Neutrophils # 5.4 K/mm3 (1.8-7.8); Neutrophils % 63.7 % (37.0-80.0); Platelet Count 316 K/mm3 (142-424); Red Blood Count 4.63 M/mm3 (4.20-5.40); Red Cell Distribution Width 12.8 % (11.5-17.5); White Blood Count 8.5 K/mm3 (4.8-10.8)
[2024-05-18 10:35] LABS: Alanine Aminotransferase 25 U/L (12-78); Alkaline Phosphatase 58 U/L (38-126); Aspartate Amino Transferase 29 U/L (14-36); Bilirubin,Total 0.4 mg/dl (0.2-1.3); Blood Urea Nitrogen 24 mg/dl (7-17); Calcium 9.9 mg/dl (8.4-10.2); Chloride 104 mmol/L (98-107); Chol/HDL Ratio 2.8 (1-3.5); Cholesterol 165 mg/dl (140-200); Estimated Glomerular Filt Rate 32 ml/min (>60); GFR (African American) 39 ML/MIN (>60); Glucose 134 mg/dl (74-100); HDL Cholesterol 60 mg/dl (40-60); Potassium 4.3 mmoL/L (3.5-5.1); Sodium 137 mmol/L (136-145); Total Protein,Serum 6.6 g/dl (6.3-8.2); Triglycerides 150 mg/dl (30-150); VLDL Cholesterol 30 mg/dL (0-40)
[2024-05-18 10:46] LABS: Direct LDL Cholesterol 63.72 mg/dL (100-129)
[2024-05-18 10:59] LABS: Albumin Level 4.2 g/dl (3.5-5.0); Albumin/Globulin Ratio 1.8 (1.1-1.8); Globulin 2.4 g/dL (1.3-3.2)
[2024-05-18 11:02] LABS: Anion Gap 12.3 mEq/L (5-15); Carbon Dioxide 25 mmol/L (22.0-30.0)
[2024-05-18 11:05] LABS: Thyroid Stimulating Hormone 2.15 uIU/mL (0.465-4.68)
[2024-05-18 11:12] LABS: Creatinine,Urine Random 109 mg/dL (Not Estab.)
[2024-05-18 11:28] LABS: Hemoglobin A1C 6.6 % (4.0-6.0)
[2024-05-18 11:35] LABS: Microalbumin/Creatinine Ratio 259.3
== END 2024-05-18 23:59 | disposition home or self-care (01) ==
LOC: LAB 09:09
PROVIDERS: PCP Nurse Practitioner Family; Visit Provider Nurse Practitioner Family
DX: E11.9 Type 2 diabetes mellitus without complications (principal); I10 Essential (primary) hypertension; E78.2 Mixed hyperlipidemia
CPT/HCPCS: 36415; 80053; 80061; 82043; 82570; 83036; 84443; 85025

== ENCOUNTER 2024-05-22 15:08 | Outpatient (CLI) | payer MEDICARE, SELFPAY ==
[2024-05-22 12:58] LABS: Microscopic, Urine URINE MICROSCOPIC (MICROSCOPIC)
[2024-05-22 14:55] LABS: Appearance,Urine CLOUDY (Clear); Bilirubin,Urine Negative (Negative); Blood, Urine TRACE-I (Negative); Color,Urine YELLOW (Yellow); Glucose,Urine (UA) 2+ (Negative); Ketones,Urine Negative (Negative); Leukocyte Esterase,Urine 1+ (Negative); Nitrate,Urine Negative (Negative); Protein,Urine 1+ (Negative); Specific Gravity, Urine 1.015 (1.005-1.030); Urobilinogen,Urine 0.2 EU/dl (0.2)
[2024-05-22 15:27] LABS: RBC,Urine Occasional #/hpf (0-3); Squamous Epithelial Cell,Urine Occasional #/hpf (0-5)
[2024-05-22 15:28] LABS: Bacteria,Urine 4+ /lpf; Yeast,Urine Occasional /lpf
== END 2024-05-22 23:59 | disposition home or self-care (01) ==
LOC: LAB.DROPOF 15:08
PROVIDERS: PCP Nurse Practitioner Family; Visit Provider Nurse Practitioner Family
DX: R30.0 Dysuria (principal); N32.81 Overactive bladder; N99.3 Prolapse of vaginal vault after hysterectomy; N39.0 Urinary tract infection, site not specified; B96.1 Klebsiella pneumoniae [K. pneumoniae] as the cause of diseases classified elsewhere
CPT/HCPCS: 81001; 87086; 87088; 87186

== ENCOUNTER 2024-11-08 14:39 | Outpatient (CLI) | payer MEDICARE, SELFPAY ==
[2024-11-08 16:24] LABS: Microscopic, Urine URINE MICROSCOPIC (MICROSCOPIC)
[2024-11-08 20:38] LABS: Appearance,Urine Slightly Cloudy (Clear); Bilirubin,Urine Negative (Negative); Blood, Urine LARGE (Negative); Color,Urine YELLOW (Yellow); Glucose,Urine (UA) >=1000 (Negative); Ketones,Urine Negative (Negative); Leukocyte Esterase,Urine MODERATE (Negative); Nitrate,Urine Negative (Negative); PH,Urine 5.5 (5.0-8.5); Protein,Urine 30 (Negative); Urobilinogen,Urine 0.2 EU/dl (0.2)
[2024-11-08 21:37] LABS: Bacteria,Urine 4+ /lpf; WBC,Urine TNTC #/hpf (0-3)
== END 2024-11-08 23:59 | disposition home or self-care (01) ==
LOC: LAB.DROPOF 11-09 10:54
PROVIDERS: PCP Nurse Practitioner Family; Visit Provider Nurse Practitioner Family
DX: R30.0 Dysuria (principal)
CPT/HCPCS: 81001; 87086; 87088; 87186

== ENCOUNTER 2024-11-23 15:17 | Outpatient (CLI) | payer MEDICARE, SELFPAY ==
[2024-11-23 15:09] LABS: Albumin Level 4.7 g/dl (3.5-5.0)
[2024-11-23 15:10] LABS: Chloride 101 mmol/L (98-107); Potassium 4.7 mmoL/L (3.5-5.1); Sodium 139 mmol/L (136-145)
[2024-11-23 15:12] LABS: Alanine Aminotransferase 29 U/L (12-78); Alkaline Phosphatase 79 U/L (38-126); Anion Gap 18.7 mEq/L (5-15); Aspartate Amino Transferase 36 U/L (14-36); Bilirubin,Total 0.7 mg/dl (0.2-1.3); Blood Urea Nitrogen 27 mg/dl (7-17); Carbon Dioxide 24 mmol/L (22.0-30.0); Estimated Glomerular Filt Rate 28 ml/min (>60); GFR (African American) 34 ML/MIN (>60)
[2024-11-23 15:13] LABS: Albumin/Globulin Ratio 1.7 (1.1-1.8); Calcium 9.8 mg/dl (8.4-10.2); Chol/HDL Ratio 2.9 (1-3.5); Cholesterol 149 mg/dl (140-200); Globulin 2.8 g/dL (1.3-3.2); Glucose 117 mg/dl (74-100); HDL Cholesterol 52 mg/dl (40-60); Total Protein,Serum 7.5 g/dl (6.3-8.2); Triglycerides 130 mg/dl (30-150); VLDL Cholesterol 26 mg/dL (0-40)
[2024-11-23 15:24] LABS: Direct LDL Cholesterol 59.14 mg/dL (100-129)
--- NOTE | 2024-11-23 15:30 | MM_ITS ---
PROCEDURE INFORMATION: Exam: MG Bilateral Screening 3D Mammography Exam date and time: 11/23/2024 3:28 PM Age: 69 years old Clinical indication: Screening exam. TECHNIQUE: Imaging protocol: Bilateral Screening tomosynthesis and 2D mammography including computer-aided detection (CAD) when performed. COMPARISON: 1. MG MM DIG SCREENING MAMM BI W/CAD 11/23/2023 9:59 AM 2. MG MM DIG SCREENING MAMM BI W/CAD 08/04/2022 8:23 AM FINDINGS: MAMMOGRAPHY: Breast composition: There are scattered areas of fibroglandular density. Mass: No suspicious masses. Architectural distortion: None. Calcifications: No suspicious calcifications. Asymmetric density: None. Skin thickening: None. Axillary adenopathy: None. IMPRESSION: No mammographic evidence of malignancy. Annual screening is recommended unless otherwise clinically indicated. ASSESSMENT: BI-RADS Category 1: Negative.
[2024-11-23 15:45] LABS: Hemoglobin A1C 6.2 % (4.0-6.0)
== END 2024-11-23 23:59 | disposition home or self-care (01) ==
LOC: RAD 15:18
PROVIDERS: PCP Nurse Practitioner Family; Visit Provider Obstetrics & Gynecology
DX: Z12.31 Encounter for screening mammogram for malignant neoplasm of breast (principal); E78.2 Mixed hyperlipidemia; I12.9 Hypertensive chronic kidney disease with stage 1 through stage 4 chronic kidney disease, or unspecified chronic kidney disease; E11.22 Type 2 diabetes mellitus with diabetic chronic kidney disease; N18.9 Chronic kidney disease, unspecified
CPT/HCPCS: 77063; 77067; 80053; 80061; 82043; 83036; 83735; 84443

== ENCOUNTER 2024-12-11 09:00 | Outpatient (CLI) | payer MEDICARE, SELFPAY ==
--- NOTE | 2024-12-11 09:15 | XR_ITS ---
FINAL REPORT CLINICAL HISTORY: osteopenia COMPARISON: 09/15/2021 FINDINGS: Using L1-4, the bone mineral density of the spine is 1.106 g/cm2, corresponding to T-score of 0.5, within normal limits. Previously was 1.107 with a T-score of 0.5. Using the left hip, the bone mineral density of the femoral neck is 0.615 g/cm2, corresponding to a T-score of -2.1, consistent with osteopenia. Previously was 0.610 with a T-score of -2.1. Using the right hip, the bone mineral density of the femoral neck is 0.645 g/cm2, corresponding to a T-score of -2.4, consistent with osteopenia. Previously was 0.585 with a T-score of -2.4. . FRAX 10 year fracture risk is 2.2% for a hip fracture and 11% for a major osteoporotic fracture. NOTE: T-score: Standard deviation compared with peak bone mass of young adult mean. *Following the recommendations of the International Society of Bone densitometry, classification of hip BMD is based on the lower of two T-scores; total hip or femoral neck. IMPRESSION: Normal bone mineral density of the lumbar spine, with diminished bone mineral density in the bilateral hips consistent with osteopenia. Reviewed, Interpreted and Dictated by Tom Aburto MD Transcribed by Mary Wu Authenticated and [facility]
--- NOTE | 2024-12-11 09:30 | CA_ITS ---
FINAL REPORT TECHNIQUE: Color Doppler, duplex Doppler and chiu scale sonography of the bilateral neck arterial vasculature was performed. Velocities were measured in the carotid arteries. Stenosis evaluation based on the validated velocity criteria. CLINICAL HISTORY: HTN, HLD, DM, ex smoker, dizziness. FINDINGS: The peak systolic velocity of the right common carotid artery is 82 cm/s. The peak systolic velocity of the right internal carotid artery is 84 cm/s and end diastolic velocity 26 cm/s. The ICA/CCA ratio is 1.3. A minimal amount of plaque is present. The right external carotid artery is patent. The right vertebral artery is patent with antegrade flow. The peak systolic velocity of the left common carotid artery is 101 cm/s. The peak systolic velocity of the left internal carotid artery is 113 cm/s and end diastolic velocity 38 cm/s. The ICA/CCA ratio is 1.6. A minimal amount of plaque is present. The left external carotid artery is patent.The left vertebral artery is patent with antegrade flow. IMPRESSION: Less than 50% bilateral carotid stenoses. Bilateral patent vertebral arteries with antegrade flow. If indicated, CTA or MRA could further evaluate. Reviewed, Interpreted and Dictated by Tom Aburto MD Transcribed by Leanna Crenshaw Authenticated and [facility]
== END 2024-12-11 23:59 | disposition home or self-care (01) ==
LOC: RAD 09:01
PROVIDERS: PCP Nurse Practitioner Family; Visit Provider Nurse Practitioner Family
DX: M85.89 Other specified disorders of bone density and structure, multiple sites (principal); I65.23 Occlusion and stenosis of bilateral carotid arteries; Z13.6 Encounter for screening for cardiovascular disorders
CPT/HCPCS: 77080; 93880

== ENCOUNTER 2025-03-06 10:17 | Outpatient (CLI) | payer MEDICARE, SELFPAY ==
--- OUTSIDE RECORDS SUMMARY | 2011-04-21 08:00 | XMS_ITS | Continuity of Care Document ---
Author Organization [facility] Address [address] [place] [address] Phone Care Team Providers Care Mailroom Messenger Name Role Phone Jarad Norris MD Unavailable Unavailable Allergies, Adverse Reactions, Alerts Substance Reaction Status Criticality iron Active No Information codeine Active No Information Medications Medication Instructions Dosage Effective Dates (start - stop) Status Comments Lisinopril 10 mg Tab take 1 tablet (10MG ) by ORAL route every day 10 MG - Active Omeprazole 20 mg Cap, Delayed Release take 1 capsule (20MG) by ORAL route every day before a meal 20 MG - Active Naprosyn 500 mg Tab take 1 tablet (500MG ) by ORAL route 2 times every day with food 500 MG - Active Procedures Procedure Date Office/outpatient visit,est, mod 2010 [place] [facility] [place] of knee, 3 views Advance Directives Directive Yes / No Effective Date File Name No Information Encounters Encounter Description Practice Location Reason(s) For Visit Diagnoses Date Provider Providers Copied on Encounter [facility] [address], [address], tel:[phone] [place] [address] No Information 1 Myrna Abraham. [address], [address], [place], [place], [id number], [place]. tel:[phone] Referring Provider: Karlos So [facility], [address] . tel:[phone] Office/outpat ient visit,est, mod [facility] [place] [address] [place], [address], [place] tel:[phone] Danejean claude Alas No Information 1 Myrna Abraham. [address], [address], [place], [place], [id number], [place]. tel:[phone] Referring Provider: Karlos So [facility] [place], [address] . tel:[phone] Office/outpat ient visit,[facility], [address] [place], [address], [place] tel:[phone] Gato [facility] knee pain (chief complaint) No Information 1 Jonh Everett. [address] [facility] [place] [place], [id number]. tel:[phone] Family History Family Member Type Diagnosis Age At Onset Problem (finding) Family history of Heart disease Problem (finding) Family history of Diabe sandra mellitus Problem (finding) Family history of hyper tension Payers Payer name Insurance type Covered green party ID Aki delgadillo(s) [facility] - [id number] CI [id number] Social History Type Description Quantity Date Captured Comments Sex Female Smoking Status No Information Chief Complaint And Reason For Visit No Information Reason For Referral Reason For Referral No Information History Of Present Illness Encounter Date Complaint History Of Prese nt Illness No Information Functional Status Date Functional Assessmen t No Information Instructions Date Instruction Additional Infor mation No Information Assessments Type Assessment Date No Information Patient Care Teams Name Effective Dates (start - stop) Status Members No Information
--- OUTSIDE RECORDS SUMMARY | 2025-03-07 15:26 | XMS_ITS | Clinical Summary ---
Author Organization [facility] Address [address] [place] [address] Phone Care Team Providers Care Clerical Support Name Role Phone Cesario Freire MD Unavailable Unavailable Allergies Active Allergy Reactions Criticality Noted Date Comments Codeine Nausea Only Low Iron Nausea Only Low Medications aspirin 81 mg Oral Tablet, Delayed Release (E.C.) Take 81 mg by mouth daily. Active CALCIUM-MAGNESIUM- ZINC ORAL Take 1 Tab by mouth daily. Active busPIRone (BUSPAR) 15 mg Oral TabletIndications: Grief reaction,Anxiety Take 1 Tab by mouth 2 times daily as needed. 180 Tab 1 09/22/19 18 Active fluticasone (FLONASE) 50 mcg/actuation Nasl Linden, Suspension 1 Linden by Nasal route daily. 3 Bottle 1 03/24/20 18 Active hydroCHLOROthiazid e (HYDRODIURIL) 25 mg Oral TabletIndications: Essential hypertension Take 1 Tab by mouth daily. 90 Tab 1 03/24/20 18 Active pantoprazole (PROTONIX) 40 mg Oral Tablet, Delayed Release (E.C.)Indications: Gastroesophageal reflux disease without esophagitis Take 1 Tab by mouth daily. 90 Tab 1 03/24/20 18 Active naproxen (NAPROSYN) 500 mg Oral TabletIndications: Primary osteoarthritis of both knees Take 1 Tab by mouth daily as needed for Pain. 90 Tab 1 03/24/20 18 Active alendronate (FOSAMAX) 70 mg Oral TabletIndications: Osteopenia, unspecified location TAKE 1 TABLET BY MOUTH ONCE A WEEK BEFORE BREAKFAST, ON AN EMPTY STOMACH, REMAIN UPRIGHT FOR 30 MINUTES, TAKE WITH 8 OUNCES OF WATER 12 Tab 1 10/20/19 19 Active Additional Information Patient not taking.Reason: Pt electing to not take the medication, Reported on 10/01/2019 lisinopril (PRINIVIL;ZESTRIL) 20 mg Oral Tablet tabletIndications: Essential hypertension TAKE 1 TABLET BY MOUTH ONCE DAILY 90 Tab 1 10/20/19 19 Active estradiol (ESTRACE) 0.5 mg Oral Tablet TAKE 1 TABLET BY MOUTH ONCE DAILY 90 Tab 04/07/20 19 Active atorvastatin (LIPITOR) 20 mg Oral Tablet TAKE 1 TABLET BY MOUTH ONE TIME A DAY 90 Tab 06/11/20 19 Active Active Problems Patient Care Coordination No te Formatting of this note migh t be different from the original. Guero as expected 05/20/2015 Problem Noted Date Diagnosed Date Osteopenia of multiple sites 10/27/2017 Overview (10/27/2017): Fosamax since 05/2016 Essential hypertension 12/24/2015 Anxiety and depression 08/02/2014 HLD (hyperlipidemia) 04/05/2014 Vitamin D deficiency 04/05/2013 B12 deficiency 04/05/2013 Insulin resistance 01/12/2013 Overview (01/12/2013): a1c 6.1 12/2012 Family history of early CAD 12/19/2012 Overview (12/19/2012): Dr. Anel james. Angiogram X 2 negative. GERD (gastroesophageal reflux disease) 3 DJD (degenerative joint disease) 12/08/2010 Overview (10/08/2016): Ortho - Dr. Gucci Gaytan EUN (obstructive sleep apnea) 12/08/2010 Overview (10/08/2016): Has cpap but does not use Resolved Problems Problem Noted Date Diagnosed Date Resolved Date Chest pain 08/02/2014 11/05/2014 Renal insufficiency 10/02/2013 11/06/19 15 Elevated cholesterol 12/08/2010 014 Immunizations Immunization Administration Dates Next Due Influenza Patient Reported 05/05/2018,05/29/2014 ,05/15/2012 Influenza Vaccine Quadrivalent 06/03/2015 Influenza Vaccine, Unspecified Formulation 05/15,05/15/2016,05/24/2013 Pneumococcal Polysaccharide 23 Valent 08/02/2014 Tdap 05/08/2012 Zoster 04/11/2014 Surgical History Surgery Date Site/Laterality Comments TONSILLECTOMY 1960's CHOLECYSTECTOMY 08/15/1984 - 08/14/1985 LITHOTRIPSY 08/15/1989 - 08/14/1990 SALPINGO-OOPHORECTOMY 08/15/1996 - 08/14/1997 no precancer APPENDECTOMY 08/15/1984 - 08/14/1985 PELVIC LAPAROSCOPY 08/15/1990 - 08/14/1991 TOTAL KNEE ARTHROPLASTY 08/15/2009 - 08/14/2010 Right replacement 2009 right KNEE SURGERY 08/15/2014 - 08/14/2015 Right X 2 right athroscopy KNEE ARTHROSCOPY 05/14/2013 Knee/Right RIGHT KNEE ARTHROSCOPY, LYSIS OF ADHESIONS/EXTENSIVE SYNOVECTOMY, TOTAL MEDIAL MENISCECTOMY ; Surgeon: Blair Stephens MD; Location: [facility]; Service: Orthopedics HYSTERECTOMY 08/15/1990 - 08/14/1991 endometriosis, Medical History Medical History Date Comments Hypertension Acid reflux Arthritis Vitamin D deficiency 04/05/2013 EUN (obstructive sleep apnea) 12/08/2010 Insulin resistance 01/12/2013 a1c 6.1 5/201 3 HLD (hyperlipidemia) 04/05/2014 GERD (gastroesophageal reflux disease) 12/19/2012 Family history of early CAD 12/19/2012 Dr. Tam prn. Angiogram X 2 negative. Essential hypertension 12/24/2015 DJD (degenerative joint disease) 12/08/2010 Ortho - Dr. Dawson B12 deficiency 04/05/2013 Anxiety and depression 08/02/2014 Kidney stones kidney stones Family History Medical History Relation Name Comments Heart Disease Brother CABG X 4 Heart Disease Father Hypertension Father Seizures Father Lung Cancer Maternal Uncle 1 Prostate Cancer Maternal Uncle 2 Diabetes Mother Heart Disease Mother Hypertension Mother Relation Name Status Comments Brother Father (Age 70) Maternal Uncle 1 Maternal Uncle 2 Mother (Age 66) Social History Tobacco Use Types Packs/Day Years Used Date Smoking Tobacco: Former Cigarettes Q uit: 05/08/1996 Smokeless Tobacco: Never Tobacco Cessation:Ready to Q uit: Yes; Counseling Given: Yes Comments:started back as far as she can remember Alcohol Use Standard Drinks/Week Comments Yes 0 (1 standard drink = 0.6 oz pur e alcohol) occ-rare. Sexually Active Control Partners Comments Never Comments No Sex and Gender Information Value Date Recorded Sex Assigned at Not on file Legal Sex Female 9:38 PM EDT Gender Identity Not on file Sexual Orientation Not on file Occupation Industry Job Start Date Job End Date retired Not on file Not on file Not on file Obstetrics History Last Filed Vital Signs Vital Sign Reading Time Taken Comments Blood Pressure 123/75 10/01/2019 10:30 AM EST Pulse 92 10/01/2019 10:30 AM EST Temperature 36.8 C (98.2 F) 10/01/2019 10:30 AM EST Respiratory Rate 16 11/01/2017 2:45 PM EDT Oxygen Saturation 98% 06/23/2018 1:59 PM EST Inhaled Oxygen Concentration - - Weight 82.1 kg (181 lb) 10/01/2019 10:30 AM EST Height 153 cm (5' 0.25 ) 10/01/2019 10:30 AM EST Body Mass Index 35.06 10/01/2019 10:30 AM EST Plan of Treatment Health Maintenance Due Date Last Done Comments Cologuard 2000 Colon Cancer Screening 2000 Colonoscopy 2000 FIT 2000 Sigmoidoscopy 2000 Virtual Colonography 2000 Zoster (2 of 3) 06/06/2014 04/11/2014 Pneumococcal Vaccine 50+ (2 of 2 - PCV) 08/02/2015 08/02/2014 Annual Wellness Exam 06/23/2019 06/23/2018, 03/31/2016 (Postponed) Breast Cancer Screening 08/03/2021 08/03/20 19, 06/23/2018, 07/23/2017, Additional history exists DTaP/TDaP/Td (2 - Td or Tdap) 05/08/2022 05/08/2012 COVID-19 Vaccine ( - season) 2024 Influenza Vaccine (#1) 2025 8, 05/15/2017, 10/08/2016 (Declined), Additional history exists Bone Density Screening Completed 10/22/2017 Hepatitis C Screening Completed 12/15/2017, 017 Hepatitis B Vaccine Aged Out No longe r eligible based on patient's age to complete this topic Meningococcal B Vaccine Aged Out No l onger eligible based on patient's age to complete this topic Goals Goal Patient Goal Type Associated Problems Recent Progress Patient-Stated? Author Blood Pressure < 140/90 Blood Pressure 123/75(2019 10:30 AM EST) No Elsa Castelan C, ACCOUNTANT ASSISTANT Maintain a healthy diet, exercise regularly and maintain an ideal body weight General No Kelli Mary, RMA Stay Tobacco Free Lifestyle No Mary Pereira, RMA Procedures Procedure Name Priority Date/Time Associated Diagnosis Comments MM MAMMO DIGITAL SCREENING W CAD BILAT Routine 08/03/2019 10:28 AM EST Encounter for screening mammogram for malignant neoplasm of breast HCV ANTIBODY SCREEN W/ REFLEX Routine 12/15/2017 8:21 AM EDT Need for hepatitis C screening test DX BONE DENSITY AXIAL SKELETON Routine 10/22/2017 10:00 AM EST Postmenopausal from Last 3 Months or Most Recently Relevant to Health Maintenance Results * MM MAMMO DIGITAL SCREENING W CAD BILAT (08/03/2019 10:28 AM EST) Anatomical Region Laterality Modality Breast Bilateral Mammography 08/03/2019 11:0 7 AM EST Impressions 08/03/2019 11:07 AM EST Negative ([id number]) ~ RECOMMENDATION: Routine screening mammogram in 1 year. ~ DISCLAIMER * Any patient with a palpable abnormality, unexplained by breast imaging, should be managed on clinical basis by the attending physician. * Breast imaging has a false negative rate of 15%. * The patient was notified by mail of the results of this examination. *The patient's information was entered into a reminder system with a target due date for the next mammogram. The mammogram was reviewed by a Radiologist and CAD. Narrative 08/03/2019 11:07 AM EST Procedure:MM MAMMO DIGITAL SCREENING W CAD BILAT ~ Reason for exam: screening, asymptomatic. Z12.31-Encounter for screening mammogram for malignant neoplasm of [id number] ~ MM MAMMO DIG SCREEN CAD BILAT Bilateral CC and MLO view(s) were taken. There are scattered fibroglandular densities. Prior study comparison: Compared with prior studies the most recent being 06/23/18, 07/23/17 No mammographic evidence of malignancy. ~ Procedure Note Yissel Mills MD - 08/03/2019 Procedure:MM MAMMO DIGITAL SCREENING W CAD BILAT ~ Reason for exam: screening, asymptomatic. Z12.31-Encounter for screening mammogram for malignant neoplasm of [id number] ~ MM MAMMO DIG SCREEN CAD BILAT Bilateral CC and MLO view(s) were taken. There are scattered fibroglandular densities. Prior study comparison: Compared with prior studies the most recentbeing 06/23/18, 07/23/17 No mammographic evidence of malignancy. ~ IMPRESSION: Negative ([id number]) ~ RECOMMENDATION: Routine screening mammogram in 1 year. ~ DISCLAIMER * Any patient with a palpable abnormality, unexplained by breast imaging, should be managed on clinical basis by the attending physician. * Breast imaging has a false negative rate of 15%. * The patient was notified by mail of the results of this examination. *The patient's information was entered into a reminder system with atarget due date for the next mammogram. The mammogram was reviewed by a Radiologist and CAD. us Cesario Freire MD IMG MAMMOGRAPHY ORDERABLES Fin al Result * HEPATITIS C ANTIBODY - SCREENING (12/15/2017 8:21 AM EDT) Hep C Ab Negative Negative 12/15/2017 11:56 AM EDT [facility] Blood Venipuncture / Unknown 12/15/2017 8:21 AM EDT 12/15/2017 8:21 AM EDT us Gladys Lopez MD HEMATOLOGY ORDERABLES Final Res ult [facility] [address] [place] [address] * DX BONE DENSITY AXIAL SKELETON (10/22/2017 10:00 AM EST) Anatomical Region Laterality Modality Dexa Scan 10/22/2017 Narrative 10/25/2017 12:04 PM EDT Indication: The patient is a post-menopausal female under age 65 with clinical risk factors for an osteoporotic fracture that requires a bone density assessment. Study was performed on [facility]. Bone Density: Region BMD T-score Z-score AP Spine (L1-L4) 1.014 -0.3 1.3 Femoral Neck (Left) 0.624 -2.0 -0.6 Total Hip (Left) 0.808 -1.1 0.0 Femoral Neck (Right) 0.586 -2.4 -1.0 Total Hip (Right) 0.709 -1.9 -0.8 World Health Organization criteria for BMD interpretation classify patients as: Normal (T-score at or above -1.0), Low Bone Density (T-score between -1.0 and -2.5), or Osteoporotic (T-score at or below -2.5). T Scores are reported in Postmenopausal women and in men age 50 and older. Z-scores are reported in females prior to menopause and in males younger than age 50. 10-year Fracture Risk: FRAX not reported because: Treated for osteoporosis Clinical Information Provided by Patient: Is being treated for osteoporosis. Has taken a bisphosphonate within the last two years. Has used or is currently using the following medications: Calcium, Vitamin D Has had or currently has the following medical conditions: Vitamin D Insufficiency Patient maximum height was 60.25 Menopause Age: 35 Patient is post menopausal woman Interpretation: Bone mineral density is in the low bone density range. Medical evaluation for secondary causes of low bone mineral density may be appropriate. A minimum of two years may be required between bone density studies due to inherent testing precision limitations. Intervals between BMD testing should be determined according to each patient's clinical status: typically one year after initiation or change in therapy is appropriate, with longer intervals once therapeutic effect is established. The spine portion of the study is limited by body habitus. The spine portion of the study is limited by visual hypertrophic changes. Reported by: Brittani Longo PA-C,CCD on 10/25/2017 9:48:00 AM. us Gladys LEMON DEXA ORDERABLES Final Resul t from Last 3 Months or Most Recently Relevant to Health Maintenance Insurance [employer] PPO Member Subscriber Plan / Payer ( fective 2019-Present) Name:Deandra Lacey Relation to Subscriber:Self Name:Deandra Lacey Payer ID:[id number] (NAIC) Type:Not on file Address: [address] [place] [id number] [employer] PPO Advance Directives For more information, please contact: [phone] Documents on File Type Date Recorded Patient Repossessor Expl anation Advance Directives/DNR 06/23/2018 1:57 PM Care Teams Clerical Support Relationship Specialty Start Date End Date Cesario Freire MD Obstetrics & Gynecology 10/08/16
--- OUTSIDE RECORDS SUMMARY | 2025-03-07 15:26 | XMS_ITS | Continuity of Care Document ---
Author Organization [place] - NT [facility]rology-[facility] Address [address] [facility] [address] [place] [address] Assessment Encounter Date Assessment Date Assessment LastModified by Organization Details LastModified Time 02/26/2025 02/26/2025 ASSESSMENT: Deandra Lacey is a 69-year-old female with an active urinary tract infection and normal cytology results. PLAN: 1. Initiate antibiotic therapy with cefdinir, twice daily for seven days, based on the sensitivity report. 2. Schedule a follow-up appointment next week to reassess and perform a cystoscopy after the infection has resolved. 3. Ensure all medical reports are sent to Dr. Hawk, Dr. Wu, and Deandra's family doctor for continuity of care. Please note this report was created using voice recognition/text compilation software documentation services during the encounter with the patient. [email or web address] Not available 02/26/2025 10:37:52 Plan of Treatment Reminders Order Date Submit Date Provider Last Modified By Organization Details Last Modified Time Details Appointments PROCEDURE 30 2024 10:15A Miguel Angel REYES MD Not available Not available Not available Lab None recorded. Referral None recorded. Procedures None recorded. Surgeries None recorded. Imaging None recorded. Medication Orders cefdinir 300 mg capsule 2024 025 [facility] [address], [address] [place], [address], 02/26/2025 10:38:05 Patient TargetsNo targets recorded. Patient InstructionsNo instructions recorded. Reason for Referral None Reported. Results Created Date Observation Date Name Description Value Unit Range Abnormal Flag Note LastModifiedBy Organization Detail LastModifiedTime 02/20/20 25 02/19/2025 urina lysis , dipst ick Leukocytes (reference range) small Not Available [place] [address] [address] [facility] [address], [place], [address], 02/19/2025 09:45:44 02/20/20 25 02/19/2025 urina lysis , dipst ick Nitrite (reference range:) positi ve Not Available [place] [address] [address] [facility] [address], [place], [address], 02/19/2025 09:45:44 02/20/20 25 02/19/2025 urina lysis , dipst ick Urobilinogen (reference range) 0.2 Not Available [place] [address] [address] [facility] [address], [place], [address], 02/19/2025 09:45:44 02/20/20 25 02/19/2025 urina lysis , dipst ick Protein (reference range) trace Not Available [place] [address] [address] [facility] [address], [place], [address], 02/19/2025 09:45:44 02/20/20 25 02/19/2025 urina lysis , dipst ick pH (reference range 5-8.5) 5.5 Not Available [place] [address] [address] [facility] [address], [place], [address], 02/19/2025 09:45:44 02/20/20 25 02/19/2025 urina lysis , dipst ick Blood (reference range:) modera te Not Available [place] [address] [address] [facility] [address], [place], [address], 02/19/2025 09:45:44 02/20/20 25 02/19/2025 urina lysis , dipst ick Specific [place] (reference range) 1.000 Not Available [place] [address], [place], [address], 02/19/2025 09:45:44 02/20/2002/19/2025 urina lysis , dipst ick Ketone (reference range) trace Not Available [place] [address] [address] [facility] [address], [place], [address], 02/19/2025 09:45:44 02/20/2002/19/2025 urina lysis , dipst ick Bilirubin (reference range) negati ve Not Available [place] [address], [place], [address], 02/19/2025 09:45:44 02/20/2002/19/2025 urina lysis , dipst ick Glucose (reference range) 250 Not Available [place] [address] [address] [facility] [address], [place], [address], 02/19/2025 09:45:44 02/20/2002/19/2025 urina lysis , dipst ick Color (reference range: yellow-brown ) Yellow Not Available [place] [address] [address] [facility] [address], [place], [address], 02/19/2025 09:45:44 02/20/2002/19/2025 bladd er scan (PROC ) Calculated Residual Urine: 55 Not Available [place] [address] [address] [facility] [address], [place], [address], 02/19/2025 09:41:58 Result Notes None recorded. Problems Name Problem SNOMED Code Status Onset Date Resolution Date Notes Provider Name and Address Organization Details Recorded Time Chronic kidney disease stage 3B 589130055 Active 2024 NIKA REYES MD [address] [facility], [place], [address] , [facility] 5 10:04:06 Lesion of urinary bladder 117349191 Active 2024 NIKA REYES MD [address], [facility] [address] , [facility] [place] 5 10:04:29 Acute urinary tract infection 239023263 Active [address], [facility] [address] , [facility] [place] 5 10:37:38 Chronic urinary bladder pain 6160367725361 9107 Active [address], [facility] [address] , [facility] [place] 5 10:31:19 Problem Notes None recorded. Procedures Surgical History Date Name Laterality Status Provider Name and Address Organization Details Recorded Time 03/07/2025 Cystoscopy -Female active MD [address], [facility] [address], [facility] [place] 03/07/2025 10:31:12 Imaging Results None recorded. Procedure Notes None recorded. Medical Equipment None Reported. Allergies Allergen ID Allergen Name Allergen Category Reaction Reaction Severity Criticality Documentation Date Start Date Code Code System Note Provider Name and Address Organization Details Recorded Time 011107 codeine medicatio n Not available Not available Not available 02/19/2025 2670 RxNorm Meena mcgill JOSE ENRIQUE Victorina [facility]NT [facility] [place] 5 09:51:11 936187 iron medicatio n Not available Not available Not available 02/19/2025 97488 RxNorm Meena Fleming Emilyeduardo mcgill JOSE ENRIQUE Victorina [facility]NT [facility] [place] 5 09:51:32 Medications Name Sig Start Date Stop Date Status Note LastModified by Organization Details LastModified Time atorvastati n 20 mg tablet Take 1 tablet every day by oral route. active Not Available Not Available No t Available oxybutynin chloride ER 10 mg tablet,exte nded release 24 hr TAKE 1 TABLET BY MOUTH ONCE DAILY active Not Available Not Available No t Available bisoprolol fumarate 5 mg tablet Take 1 tablet every day by oral route. active Not Available Not Available No t Available amlodipine 10 mg tablet Take 1 tablet every day by oral route. active Not Available Not Available No t Available cephalexin 500 mg capsule TAKE 1 CAPSULE BY MOUTH EVERY 8 HOURS FOR 10 DAYS 02/19 completed Not Available Not Available Not Available pantoprazol e 40 mg tablet,kay yed release Take 1 tablet every day by oral route. active Not Available Not Available No t Available erythromyci n 5 mg/gram (0.5 %) eye ointment APPLY A THIN LAYER TWICE A DAY 1/4 INCH STRIP 3 DAYS BEFORE BUT NOT THE DAY OF SURGERY 02/19 completed Not Available Not Available Not Available azelastine 137 mcg (0.1 %) nasal spray USE 2 SPRAY(S) IN EACH NOSTRIL TWICE DAILY 02/19 completed Not Available Not Available Not Available methylpredn isolone 4 mg tablets in a dose pack TAKE BY MOUTH DIRECTED ON INSIDE OF PACKAGE 02/19 completed Not Available Not Available Not Available losartan 50 mg-hydrochl orothiazide 12.5 mg tablet Take 1 tablet every day by oral route. active Not Available Not Available No t Available cefdinir 300 mg capsule TAKE 1 CAPSULE BY MOUTH EVERY 12 HOURS FOR 7 DAYS active Not Available Not Available No t Available metformin ER 500 mg tablet,exte nded release 24 hr TAKE 1 TABLET BY MOUTH TWICE DAILY 02/19 completed Not Available Not Available Not Available doxycycline hyclate 100 mg tablet TAKE 1 TABLET BY MOUTH TWICE DAILY FOR 10 DAYS 02/19 completed Not Available Not Available Not Available amoxicillin 875 mg-potassiu m clavulanate 125 mg tablet TAKE 1 TABLET BY MOUTH TWICE DAILY FOR 7 DAYS 02/19 completed Not Available Not Available Not Available magnesium active Not Available Not Amanda ilable Not Available Vitamin C active Not Available Not Amanda ilable Not Available calcium active Not Available Not Avail able Not Available zinc active Not Available Not Availa ble Not Available Vitamin D3 active Not Available Not Av ailable Not Available Golytely 236 gram-22.74 gram-6.74 gram-5.86 gram oral solution Take 2000 mL every day by oral route as directed for 2 days. 02/19 completed Not Available Not Available Not Available cetirizine 10 mg capsule Take by oral route. active Not Available Not Available No t Available Farxiga 10 mg tablet Take 1 tablet every day by oral route. active Not Available Not Available No t Available turmeric active Not Available Not Avai lable Not Available Gemtesa 75 mg tablet Take 1 tablet every day by oral route. active Not Available Not Available No t Available Ozempic 1 mg/dose (4 mg/3 mL) subcutaneou s pen injector Inject by subcutane ous route. active Not Available Not Available No t Available Vitals None Recorded Social History None recorded. Functional Status None recorded. Mental Status None recorded. Family History Relationship Description Onset Age of this Age Resolved Age Notes LastModified by Organization Details LastModified Time Mother Disorder of endocrine system pt. added direct ly (02/16) API-13 Not available 02/16/2025 12:25:12 Mother Myocardial infarction pt. added direct ly (02/16) [email or web address]-13 Not available 02/16/2025 12:25:53 Mother Hypertensive disorder pt. added direct ly (02/16) API-13 Not available 02/16/2025 12:26:55 Brother Disorder of endocrine system pt. added direct ly (02/16) [email or web address]-13 Not available 02/16/2025 12:25:12 Brother Myocardial infarction pt. added direct ly (02/16) [email or web address]-13 Not available 02/16/2025 12:25:53 Brother Hypercholest erolemia pt. added direct ly (02/16) API-13 Not available 02/16/2025 12:26:31 Brother Hypertensive disorder pt. added direct ly (02/16) API-13 Not available 02/16/2025 12:26:55 Brother Kidney disease pt. added direct ly (02/16) [email or web address]-13 Not available 02/16/2025 12:27:11 Sister Disorder of endocrine system pt. added direct ly (02/16) API-13 Not available 02/16/2025 12:25:12 Sister Hypertensive disorder pt. added direct ly (02/16) API-13 Not available 02/16/2025 12:26:55 Sister Kidney disease pt. added direct ly (02/16) API-13 Not available 02/16/2025 12:27:11 Maternal Grandmother Disorder of endocrine system pt. added direct ly (02/16) API-13 Not available 02/16/2025 12:25:12 Maternal Uncle Disorder of endocrine system pt. added direct ly (02/16) API-13 Not available 02/16/2025 12:25:12 Father Myocardial infarction pt. added direct ly (02/16) API-13 Not available 02/16/2025 12:25:53 Father Hypercholest erolemia pt. added direct ly (02/16) API-13 Not available 02/16/2025 12:26:31 Father Hypertensive disorder pt. added direct ly (02/16) API-13 Not available 02/16/2025 12:26:55 Medical History No medical history recorded. Gynecological HistoryNo gynecological history recorded. Obstetrics History GPAL:G 0 P 0 0 0 0 Past Encounters Encounter ID Performer Location Encounter Start Date Encounter Closed Date Diagnosis/Indication Diagnosis SNOMED-CT Code Diagnosis ICD10 Code Diagnosis Note [id number] NIKA REYES MD [facility]-1 [address] [facility] [address] [place] [address] 02/19/2025 09:08:41 02/19/2025 10:38:58 Broderick hematuria 264579755 R31.0 Chronic ki dney disease stage 3B 035630258 N18.32 History of calculus of kidney 323259957 Z87.442 Ex-smoker 7413402 Z87.89 1 Lesion of urinary bladder 571759699 N32.9 [id number] NIKA REYES MD [facility]1 00 [address] [facility] [address] [place] [address] 02/26/2025 10:11:14 02/26/2025 10:39:50 Acute urinary tract infection 310657930 N39.0 Health Concerns Section Related Observation LastModified by Organization Detai ls LastModified Time None Recorded Concern Status LastModified by Organization Details LastModified Time None Recorded Payers Encounter Date Sequence Insurance Name Policy Number Policy Zepeda Covered Member ID Zepeda Member ID Guarantor Name 02/26/2025 1 [employer] (MEDICARE REPLACEMENT/A DVANTAGE - PPO) Deandra [id number] Deandra Lacey Notes Date Note Type Note Provider Name and Address Organization Details Recorded Time 02/26/2025 text/html 02/26/25 Patient returns to my office for cystoscopy. Deandra Lacey is a 69-year-old female who presents for a procedure cystoscopy. Cytology results were normal, with no abnormal cells detected. However, an active infection was identified based on a sensitivity report received on afternoon. Deandra has a known allergy to CODEINE but no allergies to cephalosporins or similar antibiotics. She has been prescribed oxybutynin previously to calm the bladder. The provider plans to initiate antibiotic therapy with cefdinir, based on the sensitivity report, to address the infection. Deandra's medical records and reports are set up to be sent to Dr. Hawk, Dr. Wu, and her family doctor. 02/19/25 65-qato-uyc-female [facility] stage 3 chronic kidney disease. History of kidney stones, mild incontinence, had one lithotripsy. Deandra Lacey is a 69-year-old female who presents for a new patient visit. She has a history of kidney stones, which occurred in the late , but has not had any recent episodes. She experienced blood in her urine in the spring, preceded by two years of pelvic pain and pressure, particularly during urination. She underwent a colonoscopy, which was normal, and consulted her family doctor, who referred her to an ELEMENTARY TUTOR. She has had a total hysterectomy due to endometriosis and was informed that Pap smears are no longer necessary. She was evaluated for pelvic floor dysfunction and underwent a procedure involving a pessary, which provided minimal relief. Her symptoms worsened during the winter in [place], with pain radiating from the vaginal area to the anus, making it difficult to ride in a car due to sensitivity to bumps. A CT scan was performed, and subsequent cystoscopy in October revealed bladder abnormalities, including irritation and bleeding. A FISH study of the urine was normal. She has not noticed visible blood in her urine since October but reports increased urinary frequency, particularly at night, with episodes of urination occurring approximately every hour. She denies urinary leakage or accidents. She has had occasional urinary tract infections, with the most recent treated with antibiotics upon returning from [place]. She smoked in the past, quitting in 1993 after smoking approximately a pack per week for several years. She denies any history of pelvic radiation or cancer. 02/20/25 Cytology:Negative for malignant cells03/24/23 A1C 9.10, Magn 1.5, Cr 2.04, GFR 26.305 Cr 1.54, GFR 37, A1C 7.509/ Hgb 14.4, Hct 43.111 A1C 6.3, Cr 1.40, GFR 46, Hgb 12.3, Hct 39.1 NIKA REYES MD [address], [place], [address], [facility] & [place] 02/28/2025 14:44:34 OBGyn Episode No OBEpisode recorded.
--- OUTSIDE RECORDS SUMMARY | 2025-03-07 15:26 | XMS_ITS | Clinical Summary ---
Author Organization [facility] Address [address] [place] [address] Care Team Providers Care Bale Piler Name Role Phone Noemi Gonsales APRN Primary Care Provider [phone] Allergies Active Allergy Reactions Criticality Noted Date Comments Codeine Nausea And Vomiting 03/24/2023 Iron Nausea And Vomiting 03/24/2023 Medications estradiol (ESTRACE) 0.5 MG tablet Take 1 tablet by mouth Daily. 01/22/2023 Active pantoprazole (PROTONIX) 40 MG EC tablet Take 1 tablet by mouth Daily. 02/25/2023 Active metFORMIN ER (GLUCOPHAGE-XR) 500 MG 24 hr tablet Take 1 tablet by mouth 2 (Two) Times a Day. 01/22/2023 Active azelastine (ASTELIN) 0.1 % nasal spray 2 sprays into the nostril(s) as directed by provider 1 (One) Time As Needed for Rhinitis. Use in each nostril as directed Active cetirizine (zyrTEC) 10 MG tablet Take 1 tablet by mouth Daily. Active amLODIPine (NORVASC) 10 MG tablet Take 1 tablet by mouth Daily. Active atorvastatin (LIPITOR) 20 MG tablet Take 1 tablet by mouth Daily. Active aspirin 81 MG EC tablet Take 1 tablet by mouth Daily. Active Multiple Minerals-Vitami ns (CALCIUM-MAGNES IUM-ZINC-D3 PO) Take 1 capsule by mouth Daily. Active losartan-hydroc hlorothiazide (Hyzaar) 50-12.5 MG per tablet Take 1 tablet by mouth Daily. 90 tablet 3 03/24/2023 Active bisoprolol (ZEBeta) 5 MG tablet Take 0.5 tablets by mouth Every Night. 45 tablet 3 03/24/2023 Active magnesium oxide (MAG-OX) 400 MG tablet Take 1 tablet by mouth Daily. 3 tablet 03/30/2023 Active Active Problems Problem Noted Date Diagnosed Date Palpitations 03/24/2023 At risk for sleep apnea 03/24/2023 Essential hypertension 03/16/2023 Family history of early CAD 03/16/2023 Hyperlipidemia LDL goal <100 03/16/2023 Type 2 diabetes mellitus wit h stage 3b chronic kidney disease 03/16/2023 Mild obesity 03/16/2023 Family History Medical History Relation Name Comments Diabetes Brother 1 Heart attack Brother 1 bypass surgery Hyperlipidemia Brother 1 Diabetes Brother 2 Heart attack Brother 2 Sudden Brother 2 Heart attack Father Hyperlipidemia Father Hypertension Father Diabetes Mother Hyperlipidemia Mother Hypertension Mother Relation Name Status Comments Brother 1 Alive Brother 2 Father (Age 69) Mother (Age 63) Social History Tobacco Use Types Packs/Day Years Used Date Smoking Tobacco: Former Cigarettes Smokeless Tobacco: Never Tobacco Cessation:Counseling Given: Not Answered Comments:Quit smoking 20 years ago. Pt smoked 1 pack per week Alcohol Use Standard Drinks/Week Comments Never 0 (1 standard drink = 0.6 oz pur e alcohol) Abuse Screen Answer Date Recorded Unsafe at Home or Work/School Not on file Feels Threatened by Someone? Not on file Does Anyone Keep You from Co ntacting Others or Doint Things Outside the Home? Not on file 05/27/2023 Physical Sign of Abuse Present Not on file 1 Housing Stability Answer Date Recorded Current Living Arrangements Not on file 05/15 Potentially Unsafe Housing Conditions Not on jabier e 05/27/2023 Family and Community Support Answer Thom e Recorded Help with Day-to-Day Activities Not on file 05/27/2023 Lonely or Isolated Not on file 05/27/2023 Employment Answer Date Recorded Do you want help finding or keeping work or a ina b? Not on file 05/27/2023 Disabilities Answer Date Recorded Concentrating, Remembering, or Making Decisions Difficulty Not on file 05/27/2023 Doing Errands Independently Difficulty Not on fi le 05/27/2023 Education Answer Date Recorded Help with school or training? Not on file Preferred Language Not on file 05/27/2023 Comments Unknown Sex and Gender Information Value Date Recorded Sex Assigned at Not on file Legal Sex Female 9:36 AM EDT Gender Identity Not on file Sexual Orientation Not on file Last Filed Vital Signs Vital Sign Reading Time Taken Comments Blood Pressure 131/79 03/24/2023 10:01 AM EDT Pulse 88 03/24/2023 10:01 AM EDT Temperature - - Respiratory Rate - - Oxygen Saturation 98% 03/24/2023 9:55 AM EDT Inhaled Oxygen Concentration - - Weight 79.7 kg (175 lb 12.8 oz) 03/24/2023 9:55 AM EDT Height 152.4 cm (5') 03/24/2023 9:55 AM EDT Body Mass Index 34.33 03/24/2023 9:55 AM EDT Plan of Treatment Health Maintenance Due Date Last Done Comments DIABETIC EYE EXAM 1965 DIABETIC FOOT EXAM 1965 URINE MICROALBUMIN-CREATININ E RATIO (uACR) 1965 COLOGUARD 2000 COLON CANCER SCREENING 5 JUANA Thapa SIGMOIDOSCOPY 2000 COLONOSCOPY 2000 COL[address]AL CANCER SCREENING 2000 CT COLONOGRAPHY 2000 FECAL OCCULT BLOOD TEST 2000 FIT Testing (1 year) 2000 LIPID PANEL 06/23/2019 06/23/2018, 10/2017, 09/20/2017 DXA SCAN 10/23/2019 10/22/2017 MAMMOGRAM 08/03/2021 08/03/2019, 04/2018, 07/23/2017, Additional history exists ANNUAL WELLNESS VISIT 03/16/2023 HEMOGLOBIN A1C 09/24/2023 03/24/2023, 04/2018, 12/15/2017, Additional history exists COVID-19 Vaccine (2023-2 5 season) 2024 05/12/2022, 12/31/2021, 06/09/2021, Additional history exists INFLUENZA VACCINE 05/15/2025 05/11/2022, , 05/05/2018, Additional history exists TDAP/TD VACCINES (4 - Td or Tdap) 07/23/2030 07/23/2020, 05/08/2012, 10/20/1996 HEPATITIS C SCREENING Completed 12/15/2017 ZOSTER VACCINE Completed 08/20/2019, 04/16, 04/11/2014 Pneumococcal Vaccine 50+ Completed 021, 07/23/2020, 08/02/2014 Procedures Procedure Name Priority Date/Time Associated Diagnosis Comments HEMOGLOBIN A1C Routine 03/24/2023 11:29 AM EDT Essential hypertension Type 2 diabetes mellitus with stage 3b chronic kidney disease, without long-term current use of insulin from Last 3 Months or Most Recently Relevant to Health Maintenance Results * (ABNORMAL) Hemoglobin A1c (03/24/2023 11:29 AM EDT) Hemoglobin A1C 9.10(H) 4.80 - 5.60 % 03/24/2023 3:02 PM EDT [facility] Blood Venipuncture / Unknown 03/24/2023 11:29 AM EDT 03/24/2023 11:29 AM EDT Narrative [facility] - 03/24/2023 3:02 PM EDT Hemoglobin A1C Ranges: Increased Risk for Diabetes 5.7% to 6.4% Diabetes >= 6.5% Diabetic Goal < 7.0% Yolanda Arriola APRN LAB BLOOD ORDERABLES Final Result [facility]
[address] [place] [address], from Last 3 Months or Most Recently Relevant to Health Maintenance Insurance [facility] MEDICARE ADVANTAGE Care Teams Bale Piler Relationship Specialty Start Date End Date Noemi Gonsales APRN PCP - General Internal Medicine 01/26/23
--- OUTSIDE RECORDS SUMMARY | 2025-03-07 15:26 | XMS_ITS | Continuity of Care Document ---
Author Organization [facility] Address [address] [facility] [address] [place] [address] Assessment Encounter Date Assessment Date Assessment LastModified by Organization Details LastModified Time 02/19/2025 02/19/2025 ASSESSMENT: Deandra Lacey is a 69-year-old female with a history of pelvic pain, urinary frequency, and prior bladder abnormalities noted on cystoscopy. PLAN: 1. Send urine for PCR culture to evaluate for infection. 2. Prescribe oxybutynin 10 mg once daily to relax the bladder and address overactive bladder symptoms. 3. Schedule cystoscopy next week to reassess bladder abnormalities noted in October and determine if a biopsy is necessary. 4. Order ultrasound of the kidneys and bladder for further evaluation. 5. Ensure all records are sent to Dr. Hwak in [place] for continuity of care. Please note this report was created using voice recognition/text compilation software documentation services during the encounter with the patient. [email or web address] Not available 02/19/2025 10:04:38 Plan of Treatment Reminders Order Date Submit Date Provider Last Modified By Organization Details Last Modified Time Details Appointments PROCEDURE 30 2024 10:15A Miguel Angel REYES MD Not available Not available Not available Lab urinalysi s, dipstick 2024 025 [email or web address] [facility], [address] [facility] [address], [place], [address], 02/19/2025 10:09:16 cytology, urine 2024 025 [email or web address] [email or web address] [facility] (Registration ), [address] [place], [address], 02/27/2025 15:43:33 Referral None recorded. Procedures bladder scan (PROC) 2024 025 [email or web address] [place] [address], [address], [place], [address], 02/19/2025 10:09:16 Surgeries None recorded. Imaging US, kidney [address] (Centralized Scheduling), [address], [place], [address], 03/06/2025 10:26:42 US, bladder [address] (Centralized Scheduling), [address], [place], [address], 03/06/2025 10:26:43 Medication Orders None recorded. Patient TargetsNo targets recorded. Patient InstructionsNo instructions recorded. Reason for Referral None Reported. Results Created Date Observation Date Name Description Value Unit Range Abnormal Flag Note LastModifiedBy Organization Detail LastModifiedTime 02/20/2002/19/2025 urina lysis , dipst ick Leukocytes (reference range) small Not Available [facility] [place] [address] [address] [facility], [place], [address], 02/19/2025 09:45:44 02/20/2002/19/2025 urina lysis , dipst ick Nitrite (reference range:) positi ve Not Available [place] [address] [address], [place], [address], 02/19/2025 09:45:44 02/20/2002/19/2025 urina lysis , dipst ick Urobilinogen (reference range) 0.2 Not Available [place] [address] [address], [place], [address], 02/19/2025 09:45:44 02/20/20 25 02/19/2025 urina lysis , dipst ick Protein (reference range) trace Not Available [place] [address] [address] [facility] [address], [place], [address], 02/19/2025 09:45:44 02/20/20 25 02/19/2025 urina lysis , dipst ick pH (reference range 5-8.5) 5.5 Not Available [facility] [place] [address] [address] [facility] [address], [place], [address], 02/19/2025 09:45:44 02/20/20 25 02/19/2025 urina lysis , dipst ick Blood (reference range:) modera te Not Available [place] [address] [address] [facility] [address], [place], [address], 02/19/2025 09:45:44 02/20/20 25 02/19/2025 urina lysis , dipst ick Specific [place] (reference range) 1.000 Not Available [place] [address] [address] [facility] [address], [place], [address], 02/19/2025 09:45:44 02/20/20 25 02/19/2025 urina lysis , dipst ick Ketone (reference range) trace Not Available [place] [address] [address] [facility] [address], [place], [address], 02/19/2025 09:45:44 02/20/2002/19/2025 urina lysis , dipst ick Bilirubin (reference range) negati ve Not Available [place] [address] [address] [facility] [address], [place], [address], 02/19/2025 09:45:44 02/20/20 25 02/19/2025 urina lysis , dipst ick Glucose (reference range) 250 Not Available [facility], [place], [address], 02/19/2025 09:45:44 02/20/2002/19/2025 urina lysis , dipst ick Color (reference range: yellow-brown ) Yellow Not Available [facility], [place], [address], 02/19/2025 09:45:44 02/20/2002/19/2025 bladd er scan (PROC ) Calculated Residual Urine: 55 Not Available [facility], [place], [address], 02/19/2025 09:41:58 Result Notes None recorded. Problems Name Problem SNOMED Code Status Onset Date Resolution Date Notes Provider Name and Address Organization Details Recorded Time Chronic kidney disease stage 3B 529301445 Active 2024 NIKA REYES MD [address] , [place], [address] , [place] - [facility] & [place] 10:04:06 Lesion of urinary bladder 902817659 Active 2024 NIKA REYES MD [address] , [place], [address] , [place] - [facility] & [place] 5 10:04:29 Acute urinary tract infection 306576964 Active 2024 NIKA REYES MD [address], [place], [address] , [place] - [facility] & [place] 10:37:38 Chronic urinary bladder pain 4906213447331 9107 Active [address], [place], [address] , [place] - [facility] & [place] 10:31:19 Problem Notes None recorded. Procedures Surgical History Date Name Laterality Status Provider Name and Address Organization Details Recorded Time 03/07/2025 Cystoscopy -Female active NIKA REYES MD [address] [facility], [place], [address], [facility] & [place] 03/07/2025 10:31:12 Imaging Results None recorded. Procedure Notes None recorded. Medical Equipment None Reported. Allergies Allergen ID Allergen Name Allergen Category Reaction Reaction Severity Criticality Documentation Date Start Date Code Code System Note Provider Name and Address Organization Details Recorded Time 15791222 codeine medicatio n Not available Not available Not available 02/19/2025 2670 RxNorm Meena Diaz [facility] JOSE ENRIQUE - [facility] & [place] 09:51:11 844918 iron medicatio n Not available Not available Not available 02/19/2025 95320 RxNorm Meena mcgill, [facility] & [place] 09:51:32 Medications Name Sig Start Date Stop [...] Available Not Available No t Available Vitals Date Recorded Body height Body mass index (BMI) Body weight Oxygen saturation Oxygen saturation in Arterial blood by Pulse oximetry Heart rate Systolic And Diastolic Provider Name and Address Organization Details Last Updated DateTime 5 152.4 cm 30.3 kg/m2 44290.8 2 g 98 % 98 % 66 /min 144/76 mm[Hg] Meena Diaz [place] - [facility] - [place] & [place] 09:41:43 Social History None recorded. Functional Status None [...] SNOMED-CT Code Diagnosis ICD10 Code Diagnosis Note [id number] NIKA REYES MD [facility]-[address] [place] [address] 02/19/2025 09:08:41 02/19/2025 10:38:58 Broderick hematuria 038283211 R31.0 Chronic ki dney disease stage 3B 860973111 N18.32 History of calculus of kidney 183251293 Z87.442 Ex-smoker 0088947 Z87.89 1 Lesion of urinary bladder 901314918 N32.9 Health Concerns Section Related Observation LastModified by Organization Detai ls LastModified Time None Recorded Concern Status LastModified by Organization Details LastModified Time None Recorded Payers Encounter Date Sequence Insurance Name Policy Number Policy Zepeda Covered Member ID Zepeda Member ID Guarantor Name 02/19/2025 1 [employer] (MEDICARE REPLACEMENT/A DVANTAGE - PPO) Deandra Lacey [id number] Deandra Lacey Notes Date Note Type Note Provider Name and Address Organization Details Recorded Time 02/19/2025 text/html ROS as noted in the HPI 02/19/25 [id number]-female present to my office as new patient to [facility], stage 3 chronic kidney disease. History of [...] family doctor, who referred her to an [employer]. She has had a total hysterectomy due to endometriosis and was informed that Pap smears are no longer necessary. She was evaluated for pelvic floor dysfunction and underwent a procedure involving a pessary, which provided minimal relief. Her symptoms worsened during the winter in [place], with pain radiating from the vaginal area [...] recent treated with antibiotics upon returning from [place]. She smoked in the past, quitting in 1993 after smoking approximately a pack per week for several years. She denies any history of pelvic radiation or cancer. 03/24/23 A1C 9.10, Magn 1.5, Cr 2.04, GFR 26.305/12/07 Cr 1.54, GFR 37, A1C 7.509/ Hgb 14.4, Hct 43.111/05/02 A1C 6.3, Cr 1.40, GFR 46, Hgb 12.3, Hct 39.1 NIKA REYES MD [address] [facility], [place], [address], [facility] & [place] 02/19/2025 12:51:27 OBGyn Episode No OBEpisode recorded.
--- OUTSIDE RECORDS SUMMARY | 2025-03-07 15:26 | XMS_ITS | Data Portability ---
Author Organization [facility] - [facility] Address [address] [place] [address] Assessment Encounter Date Assessment Date Assessment LastModified [...] Ensure all records are sent to Dr. Hawk in [place] for continuity of care. Please note this report was created using voice recognition/text compilation software documentation services during the encounter with the patient. [email or web address] Not available 02/19/2025 10:04:38 02/26/2025 02/26/2025 ASSESSMENT: Deandra Lacey is a [...] reports are sent to Dr. Hawk, Dr. uW, and Deandra's family doctor for continuity of [...] available Lab urinalysi s, dipstick [address] [facility], [address], [place], [address], 02/19/2025 10:09:16 cytology, urine 2024 025 [facility] (Registration ), [address], [place], [address], 02/27/2025 15:43:33 Referral None recorded. Procedures bladder scan (PROC) [address] [facility], [address], [place], [address], 02/19/2025 10:09:16 Surgeries None recorded. [facility], [facility] [address] (Centralized Scheduling), [address] [facility], [place], [address], 03/06/2025 10:26:42 US, bladder [address] (Centralized Scheduling), [address] [place], [address], 03/06/2025 10:26:43 Medication Orders cefdinir 300 mg capsule 2024 025 [facility], [address] [place] [address], [address], 02/26/2025 10:38:05 Patient TargetsNo targets recorded. Patient InstructionsNo instructions recorded. Reason for Referral None Reported. Results Created Date Observation Date Name Description Value Unit Range Abnormal Flag Note LastModifiedBy Organization Detail LastModifiedTime 02/20/2002/19/2025 urina lysis , dipst ick Leukocytes (reference range) small Not Available [place] [address] [address] [facility] [address], [place], [address], 02/19/2025 09:45:44 02/20/20 25 02/19/2025 urina lysis , dipst ick Nitrite (reference range:) positi ve Not Available [place] [address] [address] [facility] [address], [place], [address], 02/19/2025 09:45:44 02/20/20 25 02/19/2025 urina lysis , dipst ick Urobilinogen (reference range) 0.2 Not Available [place] [address] [address] [facility] [address], [place], [address], 02/19/2025 09:45:44 02/20/20 25 02/19/2025 urina lysis , dipst ick Protein (reference range) trace Not Available [place] [address] [address] [facility] [address], [place], [address], 02/19/2025 09:45:44 02/20/20 25 02/19/2025 urina lysis , dipst ick pH (reference range 5-8.5) 5.5 Not Available [facility] [address] [address] [facility] [address], [place], [address], 02/19/2025 09:45:44 02/20/20 25 02/19/2025 urina lysis , dipst ick Blood (reference range:) modera te Not Available [place] [address] [address] [facility] [address], [place], [address], 02/19/2025 09:45:44 02/20/20 25 02/19/2025 urina lysis , dipst ick Specific [place] (reference range) 1.000 Not Available [place] [address] [address] [facility] [address], [place], [address], 02/19/2025 09:45:44 02/20/20 25 02/19/2025 urina lysis , dipst ick Ketone (reference range) trace Not Available [place] [address] [address] [facility] [address], [place], [address], 02/19/2025 09:45:44 02/20/20 25 02/19/2025 urina lysis , dipst ick Bilirubin (reference range) negati ve Not Available [place] [address] [address] [facility] [address], [place], [address], 02/19/2025 09:45:44 02/20/2002/19/2025 urina lysis , dipst ick Glucose (reference range) 250 Not Available [place] [address] [address] [facility] [address], [place], [address], 02/19/2025 09:45:44 02/20/2002/19/2025 urina lysis , dipst ick Color (reference range: yellow-brown ) Yellow Not Available [place] [address] [address] [facility] [address], [place], [address], 02/19/2025 09:45:44 02/20/2002/19/2025 bladd er scan (PROC ) Calculated Residual Urine: 55 Not Available [place] [address] [address] [facility] [address], [place], [address], 02/19/2025 09:41:58 Result Notes None recorded. Problems Name Problem SNOMED Code Status Onset Date Resolution Date Notes Provider Name and Address Organization Details Recorded Time Chronic kidney disease stage 3B 501509949 Active 2024 NKIA REYES MD [address] [place], [address] , [facility] 07/08/202 5 10:04:06 Lesion of urinary bladder 934313443 Active 2024 NIKA REYES MD [address], [place], [address] , [facility] & [place] 5 10:04:29 Acute urinary tract infection 436418483 Active [address], [place], [address] , [facility] & [place] 5 10:37:38 Chronic urinary bladder pain 7416015614700 9107 Active [address], [facility] [address] [place] [address] & [place] 5 10:31:19 Problem Notes None recorded. Procedures Surgical History Date Name Laterality Status Provider Name and Address Organization Details Recorded Time 03/07/2025 Cystoscopy -Female active NIKA REYES MD [address], [place], [address], [facility] & [place] 03/07/2025 10:31:12 Imaging Results None recorded. Procedure Notes None recorded. Medical Equipment None Reported. Allergies Allergen ID Allergen Name Allergen Category Reaction Reaction Severity Criticality Documentation Date Start Date Code Code System Note Provider Name and Address Organization Details Recorded Time 908448 codeine medicatio n Not available Not available Not available 02/19/2025 2670 RxNorm Meena Lonnie Emilyeduardo mcgill JOSE ENRIQUE [facility] & [place] 5 09:51:11 928793 iron medicatio n Not available Not available Not available 02/19/2025 31457 RxNorm Meena [place] Emilyeduardo mcgill JOSE ENRIQUE Pra[facility] & [place] 09:51:32 Medications Name Sig Start Date Stop [...] Updated DateTime 5 152.4 cm 30.3 kg/m2 56667.8 2 g 98 % 98 % 66 /min 144/76 mm[Hg] Meena Diaz [place] - [facility] & [place] 5 09:41:43 Date Recorded Body height Body mass index (BMI) Body weight Oxygen saturation Oxygen saturation in Arterial blood by Pulse oximetry Heart rate Systolic And Diastolic Provider Name and Address Organization Details Last Updated DateTime 5 152.4 cm 30.9 kg/m2 71202.5 9 g 96 % 96 % 72 /min 138/82 mm[Hg] [facility] & [place] 5 10:11:09 Social History None recorded. Functional Status None [...] SNOMED-CT Code Diagnosis ICD10 Code Diagnosis Note [id number] NIKA REYES MD [facility]-[address] [place] [address] 02/19/2025 09:08:41 02/19/2025 10:38:58 Broderick hematuria 090716064 R31.0 Chronic ki dney disease stage 3B 279772012 N18.32 History of calculus of kidney 873427536 Z87.442 Ex-smoker 8266034 Z87.89 1 Lesion of urinary bladder 106155683 N32.9 1521501 NIKA REYES MD [facility]rology-[address] [place] [address] 02/26/2025 10:11:14 02/26/2025 10:39:50 Acute urinary tract infection 260685896 N39.0 [id number] NIKA REYES MD [facility]-[address] [place] [address] 03/07/2025 09:52:15 03/07/2025 10:45:11 Chronic urinary bladder pain 7657419694 9271530 R39.82 Health Concerns Section Related Observation LastModified by Organization Detai ls LastModified Time None Recorded Concern Status LastModified by Organization Details LastModified Time None Recorded Advance Directives Directive None Recorded Payers Insurance Date Sequence Insurance Name Policy Number Policy Zepeda Covered Member ID Zepeda Member ID Guarantor Name 03/04/2025 1 [employer] (MEDICARE REPLACEMENT/A DVANTAGE - PPO) Deandra Lacey [id number] Deandra Lacey Notes Date Note Type Note Provider Name and Address Organization Details Recorded Time 02/19/2025 text/html ROS as noted in the HPI 02/19/25 42-bsya-czc-female present to my office as new patient to [facility] care, stage 3 chronic kidney disease. History of [...] family doctor, who referred her to an [employer]. She has had a total hysterectomy due to endometriosis and was informed that Pap smears are no longer necessary. She was evaluated for pelvic floor dysfunction and underwent a procedure involving a pessary, which provided minimal relief. Her symptoms worsened during the winter in [place], with pain radiating from the vaginal area [...] recent treated with antibiotics upon returning from [place]. She smoked in the past, quitting in 1993 after smoking approximately a pack per week for several years. She denies any history of pelvic radiation or cancer. 03/24/23 A1C 9.10, Magn 1.5, Cr 2.04, GFR 26.305/12/07 Cr 1.54, GFR 37, A1C 7.509/ Hgb 14.4, Hct 43.111/05/02 A1C 6.3, Cr 1.40, GFR 46, Hgb 12.3, Hct 39.1 NIKA REYES MD [address] [facility], [place], [address], [facility] & [place] 02/19/2025 12:51:27 02/26/2025 text/html 02/26/25 Patient returns to my [...] the sensitivity report, to address the infection. [facility] medical records and reports are set up to be sent to Dr. Hawk, Dr. Wu, and her family doctor. 02/19/25 31-uucm-jeo-female present to my office as new patient to [facility] care, stage 3 chronic kidney disease. History of kidney stones, mild incontinence, had one lithotripsy. Deandra Lacey is a 69-year-old female who presents for a new patient visit. She has a history of kidney stones, which occurred in the late , but has not had any recent episodes. She experienced blood in her urine in the spring of 2023, preceded by two years of pelvic pain and pressure, particularly during urination. She underwent a colonoscopy, which was normal, and consulted her family doctor, who referred her to an [employer]. She has had a total hysterectomy due to endometriosis and was informed that Pap smears are no longer necessary. She was evaluated for pelvic floor dysfunction and underwent a procedure involving a pessary, which provided minimal relief. Her symptoms worsened during the winter in [place], with pain radiating from the vaginal area [...] recent treated with antibiotics upon returning from [place]. She smoked in the past, quitting in 1993 after smoking approximately a pack per week for several years. She denies any history of pelvic radiation or cancer. 02/20/25 Cytology:Negative for malignant cells03/24/23 A1C 9.10, Magn 1.5, Cr 2.04, GFR 26.305 Cr 1.54, GFR 37, A1C 7.509/ Hgb 14.4, Hct 43.111/05/02 A1C 6.3, Cr 1.40, GFR 46, Hgb 12.3, Hct 39.1 NIKA REYES MD [address], [place], [address], [place] - [facility] - [place] & [place] 02/28/2025 14:44:34 03/07/2025 text/html 03/07/25 Patient returns for cystoscopy -02/26/25Deandra Lacey is a 69-year-old female who presents [...] Hawk, Dr. Wu, and her family doctor. --02/19/25696940-qizb-st d-female present to my office as new patient to [facility], stage 3 chronic kidney disease. History of kidney stones, mild incontinence, had one lithotripsy.Deandra Lacey is a 69-year-old female who presents [...] family doctor, who referred her to an [employer]BER. She has had a total hysterectomy due to endometriosis and was informed that Pap smears are no longer necessary.She was evaluated for pelvic floor dysfunction and underwent a procedure involving a pessary, which provided minimal relief. Her symptoms worsened during the winter in [place], with pain radiating from the vaginal area to the anus, making it difficult to ride in a car due to sensitivity to bumps. A CT scan was performed, and subsequent cystoscopy in October revealed bladder abnormalities, including irritation and bleeding. A FISH study of the urine was normal.She has not noticed visible blood in her urine since October but reports increased urinary frequency, particularly at night, with episodes of urination occurring approximately every hour. She denies urinary leakage or accidents. She has had occasional urinary tract infections, with the most recent treated with antibiotics upon returning from [place].She smoked in the past, quitting in 1993 after smoking approximately a pack per week for several years. She denies any history of pelvic radiation or cancer. 02/20/25 Cytology: Negative for malignant cells03/24/23 A1C 9.10, Magn 1.5, Cr 2.04, GFR 26.305 Cr 1.54, GFR 37, A1C 7.509/ Hgb 14.4, Hct 43.111 A1C 6.3, Cr 1.40, GFR 46, Hgb 12.3, Hct 39.1 Deandra Lacey is a 69-year-old female who presents for a procedure cystoscopy. She has been experiencing urinary frequency, waking approximately four to seven times per night, and pain during urination described as feeling like barbed wire. She previously had a bleeding episode without an identifiable cause, and a prior scope revealed a spot that appeared to be oozing, though no definitive diagnosis was provided. Medications tried include oxybutynin and Gemtesa, which have not alleviated her symptoms. A speech study and cytology were performed previously, both yielding negative results. Not Available Not Available Not Available OBGyn Episode No OBEpisode recorded.
--- OUTSIDE RECORDS SUMMARY | 2025-03-07 15:26 | XMS_ITS | Clinical Summary ---
Author Organization [facility] Address [address], [address] [place] [address] Care Team Providers Care Parking Control Officer Name Role Phone Gladys Lopez Poncho Primary Care Provider [phone] Allergies Active Allergy Reactions Criticality Noted Date Comments Codeine Nausea And Vomiting Low 07/17/2014 Citrated Iron Medications atorvastatin (LIPITOR) 20 MG tablet Take 20 mg by mouth every evening Active melatonin 3 MG TABS tablet Take 3 mg by mouth every evening Active naproxen (NAPROSYN) 375 MG tablet Take 375 mg by mouth as needed Active pantoprazole (PROTONIX) 40 MG tablet Take 40 mg by mouth daily 11/12/2014 Active aspirin 325 MG tablet Take 1 tablet by mouth 2 times daily 60 tablet 0 03/12/2015 Active aspirin 81 MG tablet Take 81 mg by mouth daily Active lisinopril (PRINIVIL;ZESTR IL) 20 MG tablet 05/31/2011 Active hydrochlorothia zide (HYDRODIURIL) 25 MG tablet 10/30/2015 Active alendronate (FOSAMAX) 70 MG tablet Take 1 tablet by mouth every 7 days 4 tablet 3 11/12/2015 Active naproxen (NAPROSYN) 500 MG tablet Take 1 tablet by mouth 2 times daily 60 tablet 3 11/12/2015 Active alendronate (FOSAMAX) 70 MG tablet Take 1 tablet by mouth every 7 days 12 tablet 1 01/14/2016 Active HYDROcodone-stephanie taminophen (NORCO) 5-325 MG per tablet 02/05/2016 Activ e amLODIPine (NORVASC) 5 MG tablet 01/20/2016 Active Active Problems Problem Noted Date Diagnosed Date Osteoporosis of lower leg 07/14/2016 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 Primary osteoarthritis of right knee 05/21/2015 Right knee buckling 07/17/2014 Osteoarthrosis involving lower leg 07/17/2014 Overview (01/18/2016): Replacing Inactive Diagnoses Failed total knee, 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 Total knee replacement status 07/17/2014 Postoperative stiffness of total knee replacemen t 07/17/2014 Pain due to total knee replacement 07/17/2014 Iliotibial band tendonitis 07/17/2014 Family History Medical History Relation Name Comments Diabetes Father Heart Disease Father Diabetes Mother Heart Disease Mother Relation Name Status Comments Father Mother Social History Tobacco Use Types Packs/Day Years Used Date Smoking Tobacco: Former Cigarettes Q uit: 08/15/2009 Tobacco Cessation:Counseling Given: Yes Alcohol Use Standard Drinks/Week Comments No 0 (1 standard drink = 0.6 oz pur e alcohol) Comments No Sex and Gender Information Value Date Recorded Sex Assigned at Not on file Legal Sex Female 11:42 PM EST Gender Identity Not on file Sexual Orientation Not on file Last Filed Vital Signs Vital Sign Reading Time Taken Comments Blood Pressure 106/67 10/13/2016 3:09 PM EST Pulse 76 10/13/2016 3:09 PM EST Temperature 36.8 C (98.3 F) 03/12/2015 11:11 AM EDT Respiratory Rate 16 03/12/2015 11:11 AM EDT Oxygen Saturation 99% 03/12/2015 11:11 AM EDT Inhaled Oxygen Concentration - - Weight 68.9 kg (152 lb) 10/13/2016 3:09 PM EST Height 152.4 cm (5') 10/13/2016 3:09 PM EST Body Mass Index 29.69 10/13/2016 3:09 PM EST Plan of Treatment Not on file Insurance [employer] Advance Directives * Full Code (Latest Code Status on File) Date Activated Date Inactivated Comments 03/10/2015 4:24 PM 03/12/2015 2:25 PM Care Teams Parking Control Officer Relationship Specialty Start Date End Date Gladys Lopez PCP - General 02/19/15
== END 2025-03-06 23:59 | disposition home or self-care (01) ==
LOC: LAB.DROPOF 03-07 15:20
PROVIDERS: PCP Nurse Practitioner Family; Visit Provider Nurse Practitioner Family
DX: N39.0 Urinary tract infection, site not specified (principal)
CPT/HCPCS: 87086

== ENCOUNTER 2025-04-22 10:43 | Outpatient (CLI) | payer MEDICARE, SELFPAY ==
--- OUTSIDE RECORDS SUMMARY | 2011-04-21 08:00 | XMS_ITS | Continuity of Care Document ---
Author Organization [facility] Address [address] [place] [address] Phone Care Team Providers Care Outsole Leveler Name Role Phone Jarad Norris MD Unavailable [...] Date Office/outpatient visit,est, mod 2010 Office/outpatient visit,[place], [facility] [place] X-ray exam of knee, 3 views Advance Directives Directive Yes / No Effective Date File Name No Information Encounters Encounter Description Practice Location Reason(s) For Visit Diagnoses Date Provider Providers Copied on Encounter [facility] [address], [address], tel:[phone] [address] [place] [address] No Information 1 Myrna Abraham. [address], [address], [place], [place], [id number], [place]. tel:[phone] Referring Provider: Karlos [place] [facility] [place], [address] . tel:[phone] Office/outpat ient visit,est, mod [facility] [place] [address] [place], [address], [place] tel:[phone] [address] Columbiajean claude Alas No Information 1 Myrna Abraham. [address], [address], [place], [place], [id number], [place]. tel:[phone] Referring Provider: Karlos So [facility] [place] [facility] [place], [address] . tel:[phone] Office/outpat ient visit,[facility], [address] [place], [address], [place] tel:[phone] Gato [facility] knee pain (chief complaint) No Information 1 Jonh Everett. [address] [facility] [place], [place], [address]. tel:[phone] Family History Family Member Type Diagnosis Age At Onset Problem (finding) Family history of Heart disease Problem (finding) Family history of Diabe sandra mellitus Problem (finding) Family history of hyper tension Payers Payer name Insurance type Covered libertarian ID Aki delgadillo(s) [facility] - [id number] CI [id number] Social History Type Description Quantity Date Captured [...]
[2025-04-22 13:33] LABS: Coronavirus 19, PCR Not Detected (NotDetected); Influenza A, PCR Not Detected (NotDetected); Influenza B, PCR Not Detected (NotDetected)
--- OUTSIDE RECORDS SUMMARY | 2025-04-23 10:20 | XMS_ITS | Clinical Summary ---
Author Organization [facility] Address [address] [place] [address] Care Team Providers Care Atomic Process Engineer Name Role Phone Noemi Gonsales APRN Primary Care Provider [phone] Allergies Active Allergy Reactions Criticality Noted Date [...] 1965 COLOGUARD 2000 COLON CANCER SCREENING 5 FLOYDA R SIGMOIDOSCOPY 2000 COLONOSCOPY 2000 COLORECTAL CANCER SCREENING 2000 CT COLONOGRAPHY 2000 FECAL OCCULT BLOOD TEST 2000 FIT Testing (1 year) 2000 LIPID PANEL 06/23/2019 06/23/2018, 10/2017, 09/20/2017 DXA SCAN 10/23/2019 10/22/2017 MAMMOGRAM 08/03/2021 08/03/2019, 04/2018, 07/23/2017, Additional history exists ANNUAL WELLNESS VISIT 03/16/2023 HEMOGLOBIN A1C 09/24/2023 03/24/2023, 04/2018, 12/15/2017, Additional history exists COVID-19 Vaccine (2024-09 6 season) 2025 05/12/2022, 12/31/2021, 06/09/2021, Additional history exists INFLUENZA [...] - 5.60 % 03/24/2023 3:02 PM EDT [facility] Blood Venipuncture / Unknown 03/24/2023 11:29 AM EDT 03/24/2023 11:29 AM EDT Narrative [facility] - 03/24/2023 3:02 PM EDT Hemoglobin A1C Ranges: Increased Risk for Diabetes 5.7% to 6.4% Diabetes >= 6.5% Diabetic Goal < 7.0% Yolanda Arriola APRN LAB BLOOD ORDERABLES Final Result [facility]
[address] [place] [address], from Last 3 Months or Most Recently Relevant to Health Maintenance Insurance [facility] MEDICARE ADVANTAGE Care Teams Atomic Process Engineer Relationship Specialty Start Date End Date Noemi Gonsales APRN PCP - General Internal Medicine 01/26/23
--- OUTSIDE RECORDS SUMMARY | 2025-04-23 10:20 | XMS_ITS | Clinical Summary ---
Author Organization [facility] Address [address], [address] [place] [address] Care Team Providers Care Research Animal Attendant Name Role Phone Gladys Lopez Poncho Primary Care Provider [phone] Allergies Active Allergy Reactions Criticality Noted Date [...] 4:24 PM 03/12/2015 2:25 PM Care Teams Research Animal Attendant Relationship Specialty Start Date End Date Gladys Lopez PCP - General 02/19/15
--- OUTSIDE RECORDS SUMMARY | 2025-04-23 10:20 | XMS_ITS | Clinical Summary ---
Author Organization [facility] Address [address] [facility] [place] [address] Phone Care Team Providers Care Line Crewman Name Role Phone Cesario Freire MD Unavailable [...] 18 Active fluticasone (FLONASE) 50 mcg/actuation Nasl [place], Suspension 1 [place] by Nasal route daily. 3 Bottle 1 [...] 05/08/2022 05/08/2012 COVID-19 Vaccine ( - season) 2025 Influenza Vaccine (#1) 2025 8, 05/15/2017, 10/08/2016 [...] 10:30 AM EST) No Elsa Castelan C, LEAN SIX SIGMA BLACK BELT Maintain a healthy diet, exercise regularly and [...] EST Impressions 08/03/2019 11:07 AM EST Negative (RFK-Prqpamlw-4) ~ RECOMMENDATION: Routine screening mammogram in 1 [...] for screening mammogram for malignant neoplasm of hqgqqn-[id number]-CM ~ MM MAMMO DIG SCREEN CAD BILAT [...] for screening mammogram for malignant neoplasm of zqqzbq-IQZ-12-CM ~ MM MAMMO DIG SCREEN CAD BILAT Bilateral CC and MLO view(s) were taken. There are scattered fibroglandular densities. Prior study comparison: Compared with prior studies the most recentbeing 06/23/18, 07/23/17 No mammographic evidence of malignancy. ~ IMPRESSION: Negative (FVQ-Blkjxwuj-2) ~ RECOMMENDATION: Routine screening mammogram in 1 [...] Ab Negative Negative 12/15/2017 11:56 AM EDT [facility] Blood Venipuncture / Unknown 12/15/2017 8:21 AM EDT 12/15/2017 8:21 AM EDT us Gladys Lopez MD HEMATOLOGY ORDERABLES Final Res ult [facility] [address] [place] [address] * DX BONE DENSITY AXIAL SKELETON (10/22/2017 10:00 AM EST) Anatomical Region Laterality Modality Dexa Scan 10/22/2017 Narrative 10/25/2017 12:04 PM EDT Indication: The patient is a post-menopausal female under age 65 with clinical risk factors for an osteoporotic fracture that requires a bone density assessment. Study was performed on [employer] 5. Bone Density: Region BMD T-score Z-score [...] Type:Not on file Address: [id number] [place] [phone] [employer] PPO Advance Directives For more information, please contact: [phone] Documents on File Type Date Recorded Patient Bilingual Counter Sales Retail Expl anation Advance Directives/DNR 06/23/2018 1:57 PM Care Teams Line Crewman Relationship Specialty Start Date End Date Cesario Freire MD Obstetrics & Gynecology 10/08/16
--- OUTSIDE RECORDS SUMMARY | 2025-04-23 10:20 | XMS_ITS | Clinical Summary ---
Author Organization [facility] Address [address] [place] [address] Care Team Providers Care Legal Billing Analyst Name Role Phone DruNoemi Sadi PANTOJA Primary Care Provider [phone] Allergies Active Allergy Reactions Criticality Noted Date Comments Codeine Nausea 05/14/2019 Iron Nausea Low 10/05/2021 Medications ascorbic acid (Vitamin C) 500 MG tablet 0 Active Aspirin Buf,CaCarb-MgCa rb-MgO, 81 MG tablet 9 Active atorvastatin (Lipitor) 20 MG tablet 9 Active cyanocobalamin (Vitamin B-12) 500 MCG tablet 9 Active estradiol (Estrace) 0.5 MG tablet 9 Active fluticasone (Flonase) 50 MCG/ACT nasal spray 9 Active naproxen (Naprosyn) 500 MG tablet prn 9 Active pantoprazole (Protonix) 40 MG EC tablet 9 Active glyBURIDE (Diabeta) 2.5 MG tablet TAKE 1 TABLET BY MOUTH ONCE DAILY WITH BREAKFAST OR THE FIRST MAIN MEAL OF THE DAY 2 Active Multiple Minerals-Vitami ns (CALCIUM-MAGNES IUM-ZINC-D3 PO) Take by mouth. Active cetirizine (ZyrTEC) 10 MG tablet TAKE 1 TABLET BY MOUTH ONCE DAILY 2 Active metFORMIN XR (Glucophage-XR) 500 MG 24 hr tablet TAKE 2 TABLETS BY MOUTH ONCE DAILY IN THE EVENING WITH MEAL 2 Active Azelastine HCl 137 MCG/SPRAY solution USE 1 SPRAY(S) IN EACH NOSTRIL TWICE DAILY 2 Active magnesium oxide (Mag-Ox) 400 MG tablet Take 1 tablet (400 mg) by mouth 1 (one) time each day. 3 Active amLODIPine (Norvasc) 10 MG tablet Take 1 tablet (10 mg) by mouth 1 (one) time each day. Active bisoprolol (Zebeta) 5 MG tablet TAKE 1/2 (ONE-HALF) TABLET BY MOUTH ONCE DAILY AT NIGHT 3 Active Turmeric (QC Tumeric Complex) 500 MG capsule Take by mouth. Activ e CALCIUM-MAGNESI UM-ZINC PO Take by mouth. Acti ve losartan-hydroC HLOROthiazide (Hyzaar) 50-12.5 MG tablet 3 Active Semaglutide,0.2 5 or 0.5MG/DOS, 2 MG/3ML solution pen-injector 0.25 mg. 3 Active Active Problems Problem Noted Date Diagnosed Date Palpitations 03/24/2023 07/14/2023 Type 2 diabetes mellitus wit h stage 3b chronic kidney disease 03/16/2023 07/14/2023 Mild obesity 03/16/2023 07/14/2023 Hyperlipidemia LDL goal <100 03/16/2023 Osteoporosis 05/16/2019 Hypertension 05/14/2019 CKD (chronic kidney disease) stage 3, GFR 30-59 ml/min 03/01/2019 Immunizations Immunization Administration Dates Next Due Hep A, Adult 07/23/2020,05/08/2019 Influenza, Unspecified 05/15/2017,2015,05/29/2014,05/24,05/15/2012 Influenza, high-dose, quadrivalent 05/13/2023, Influenza, injectable, quadrivalent 06/03/2015 Influenza, injectable, quadr ivalent, preservative free 05/08/2019,05/05/2018 Moderna COVID-19 Vaccine (Re d Cap) 12+ years 12/31/2021,06/09/2021,10/03/2020,09/03 Moderna Covid-19 Vaccine 12y +, Manoj Protein, Preservative free 05/13/2023 Pneumococcal Conjugate PCV 13 07/23/2020 Pneumococcal Polysaccharide PPV23 07/28/2021, Rsvpref, Recombinant, Protei n Subunit, Adjuvent 05/31/2023 TD (adult), 2 Lf tetanus tox oid, preservative free, adsorbed 10/20/1996 Tdap 07/23/2020,05/08/2012 Zoster, Recombinant 08/20/2019,05/08/2019 Zoster, live 04/11/2014 Family History Medical History Relation Name Comments Cardiac disorder Father Hyperlipidemia Father Hypertension Father Cardiac disorder Mother Diabetes Mother Hypertension Mother Relation Name Status Comments Father Mother Social History Tobacco Use Types Packs/Day Years Used Date Smoking Tobacco: Former Smokeless Tobacco: Never Tobacco Cessation:Counseling Given: Not Answered Alcohol Use Standard Drinks/Week Comments Not Currently 0 (1 standard drink = 0.6 oz pure alcohol) Alcoholic Drinks/day: History of alcohol use PHQ-2 Answer Date Recorded Patient Health Questionnaire-2 Score 0 12/19/2023 Comments Unknown Sex and Gender Information Value Date Recorded Sex Assigned at Female 04/26/2023 9:33 AM EDT Legal Sex Female 7:25 PM EDT Gender Identity Not on file Sexual Orientation Not on file Last Filed Vital Signs Vital Sign Reading Time Taken Comments Blood Pressure 143/77 12/19/2023 11:31 AM EDT Pulse 64 12/19/2023 11:31 AM EDT Temperature - - Respiratory Rate 16 12/19/2023 11:31 AM EDT Oxygen Saturation 100% 12/19/2023 11:31 AM EDT Inhaled Oxygen Concentration - - Weight 72.8 kg (160 lb 6.4 oz) 12/19/2023 11:31 AM EDT Height 152.4 cm (5') 12/19/2023 11:31 AM EDT Body Mass Index 31.33 12/19/2023 11:31 AM EDT Plan of Treatment Health Maintenance Due Date Last Done Comments [facility]LY [facility]-Medicare Annual Wellness (AWV) 1955 [facility]-/Child/Adol SDOH Screenings 1955 Diabetes: Dental Exam 1965 [facility]- SDOH Screenings 1973 [facility]-Adult SDOH Screenings 1973 CT Colonography 2000 Colonoscopy 2000 FIT-DNA 2000 FIT 2000 FOBT 2000 Sigmoidoscopy 2000 [facility]-Colorectal Cancer Screening 2000 [facility]-Bone Density Scan 10/22/2018 10/22/2017, 018 [facility]-Breast Cancer Screening 08/03/202107/16, 08/03/2019, 06/23/2018, Additional history exists [facility]-Diabetes: Hemoglobin A1C 09/21/2023 03/24/2023 [facility]-Depression Screening 12/18/2024 12/19/2023 [id number] Vaccine ( season) 2025 05/13/2023, 05/12/2022, 12/31/2021, Additional history exists [facility]-Influenza Vaccine (#1) 04/15/202505/13, 05/11/2022, 05/08/2019, Additional history exists [facility]-DTaP,Tdap,and Td Vaccines (3 - Td or Tdap) 07/23/2030 07/23/2020, 05/08/2012, 10/20/1996 [facility]-Hepatitis C Screening Completed 12/15/2017 [facility]-Zoster Vaccines Completed 08/20/2019, 05/08/2019, 04/11/2014 [facility]-Hepatitis A Vaccines Aged Out 07/23/2020, 04/16 No longer eligible based on patient's age to complete this topic [facility]-Pneumococcal Vaccine: 50+ Years Completed 07/28/2021, 07/23/2020, 08/02/2014 [facility]-RSV Vaccine: 60+ Years or Completed 05/31/2023 [facility]-Obesity Intervention Completed 024, 07/18/2023, 07/05/2022 HPV Vaccines Aged Out No longer eligi ble based on patient's age to complete this topic [facility]-HIB Vaccines Aged Out No longer e ligible based on patient's age to complete this topic [facility]-IPV Vaccines Aged Out No longer e ligible based on patient's age to complete this topic [facility]-Rotavirus Vaccines Aged Out No lo nger eligible based on patient's age to complete this topic Insurance [facility] MEDICARE Care Teams Legal Billing Analyst Relationship Specialty Start Date End Date Noemi Gonsales APRN [address] [place] [address] PCP - General 12/23/23
== END 2025-04-22 23:59 ==
LOC: LAB.DROPOF 04-23 10:10
PROVIDERS: PCP Nurse Practitioner Family; Visit Provider Nurse Practitioner Family
DX: R68.89 Other general symptoms and signs (principal)
CPT/HCPCS: 87631

== ENCOUNTER 2025-06-24 13:24 | Outpatient (CLI) | payer MEDICARE, SELFPAY ==
--- OUTSIDE RECORDS SUMMARY | 2025-06-24 13:27 | XMS_ITS | Clinical Summary ---
Author Organization [facility] Address [address], [address] [place] [address] Care Team Providers Care Mock Up Builder Name Role Phone Gladys Lopez Poncho Primary Care Provider [phone] Allergies Active Allergy Reactions Criticality Noted Date [...] 4:24 PM 03/12/2015 2:25 PM Care Teams Mock Up Builder Relationship Specialty Start Date End Date Gladys Lopez PCP - General 02/19/15
--- OUTSIDE RECORDS SUMMARY | 2025-06-24 13:27 | XMS_ITS | Clinical Summary ---
Author Organization [facility] Address [address] [place] [address] Care Team Providers Care Information Technology Security Analyst Name Role Phone Noemi Gonsales APRN Primary Care Provider [phone] Allergies Active Allergy Reactions Criticality Noted Date [...] 09/24/2023 03/24/2023, 04/2018, 12/15/2017, Additional history exists INFLUENZA VACCINE 03/15/2025 05/11/2022, , 05/05/2018, Additional history exists COVID-19 Vaccine ( - 2024-2 6 season) 2025 05/12/2022, 12/31/2021, 06/09/2021, Additional history exists TDAP/TD VACCINES (4 - [...] - 5.60 % 03/24/2023 3:02 PM EDT [facility] Blood Venipuncture / Unknown 03/24/2023 11:29 AM EDT 03/24/2023 11:29 AM EDT Narrative [facility] - 03/24/2023 3:02 PM EDT Hemoglobin A1C Ranges: Increased Risk for Diabetes 5.7% to 6.4% Diabetes >= 6.5% Diabetic Goal < 7.0% Yolanda Arriola APRN LAB BLOOD ORDERABLES Final Result [facility]
[address] [place] [address], from Last 3 Months or Most Recently Relevant to Health Maintenance Insurance [facility] MEDICARE ADVANTAGE Care Teams Information Technology Security Analyst Relationship Specialty Start Date End Date Noemi Gonsales APRN PCP - General Internal Medicine 01/26/23
--- OUTSIDE RECORDS SUMMARY | 2025-06-24 13:27 | XMS_ITS | Clinical Summary ---
Author Organization [facility] Address [address] [place] [place] [address] Phone Care Team Providers Care Laborer Sawmill Name Role Phone Cesario Freire MD Unavailable [...] 18 Active fluticasone (FLONASE) 50 mcg/actuation Nasl [place], Suspension 1 [place] by Nasal route daily. 3 Bottle 1 [...] Overview (10/08/2016): Ortho - Dr. Gucci Gaytan UEN (obstructive sleep apnea) 12/08/2010 Overview (10/08/2016): Has [...] MENISCECTOMY ; Surgeon: Blair Stephens MD; Location: [facility]; Service: Orthopedics HYSTERECTOMY 08/15/1990 - [...] file Not on file Not on file Last Filed Vital Signs [...] Td or Tdap) 05/08/2022 05/08/2012 COVID-19 Vaccine (1 - 2024- season) 2025 Influenza Vaccine (#1) 2025 8, [...] 10:30 AM EST) No Elsa Castelan C, CREATIVE ENGAGEMENT DIRECTOR Maintain a healthy diet, exercise regularly and maintain an ideal body weight General No Kelli, Mary, RMA Stay Tobacco Free Lifestyle No Kelli Mary, RMA Procedures Procedure Name Priority Date/Time Associated [...] EST Impressions 08/03/2019 11:07 AM EST Negative ([id number]-Xldrxxyj-1) ~ RECOMMENDATION: Routine screening mammogram in 1 [...] for screening mammogram for malignant neoplasm of njepxg-VMC-92-CM ~ MM MAMMO DIG SCREEN CAD BILAT [...] for screening mammogram for malignant neoplasm of bhcltf-PCE-50-CM ~ MM MAMMO DIG SCREEN CAD BILAT Bilateral CC and MLO view(s) were taken. There are scattered fibroglandular densities. Prior study comparison: Compared with prior studies the most recentbeing 06/23/18, 07/23/17 No mammographic evidence of malignancy. ~ IMPRESSION: Negative (DIH-Dklameki-4) ~ RECOMMENDATION: Routine screening mammogram in 1 [...] Ab Negative Negative 12/15/2017 11:56 AM EDT [facility] Blood Venipuncture / Unknown 12/15/2017 8:21 AM EDT 12/15/2017 8:21 AM EDT us Gladys Lopez MD HEMATOLOGY ORDERABLES Final Res ult [facility] [address] [place], [place] [id number] * DX BONE DENSITY AXIAL SKELETON (10/22/2017 10:00 AM EST) Anatomical Region Laterality Modality Dexa Scan 10/22/2017 Narrative 10/25/2017 12:04 PM EDT Indication: The patient is a post-menopausal female under age 65 with clinical risk factors for an osteoporotic fracture that requires a bone density assessment. Study was performed on [employer] 5. Bone Density: Region BMD T-score Z-score [...] PA-C,CCD on 10/25/2017 9:48:00 AM. us Gladys Lopez MD IMScar DEXA ORDERABLES Final Resul t from Last 3 Months or Most Recently Relevant to Health Maintenance Insurance [employer] PPO Member Subscriber Plan / Payer ( fective 2019-Present) Name:Deandra Lacey Relation to Subscriber:Self Name:Deandra Lacey Payer ID:[id number] (NAIC) Type:Not on file Address: [address] [place] [phone] [employer] PPO Advance Directives For more information, please contact: [phone] Documents on File Type Date Recorded Patient Show Host Or Hostess Expl anation Advance Directives/DNR 06/23/2018 1:57 PM Care Teams Laborer Sawmill Relationship Specialty Start Date End Date Cesario Freire MD Obstetrics & Gynecology 10/08/16
--- OUTSIDE RECORDS SUMMARY | 2025-06-24 13:27 | XMS_ITS | Clinical Summary ---
Author Organization [facility] Address [address] [place] [address] Care Team Providers Care Tool And Gauge Inspector Name Role Phone DruNoemi Sadi PANTOJA Primary Care Provider [phone] Allergies Active Allergy Reactions Criticality Noted Date [...] Maintenance Due Date Last Done Comments [facility]-Medicare Annual Wellness (AWV) 1955 [facility]-/Child/Adol SDOH Screenings 1955 Diabetes: Dental Exam 1965 [facility]- SDOH Screenings 1973 [facility]-Adult SDOH Screenings 1973 CT Colonography 2000 Colonoscopy 2000 FIT-DNA 2000 FIT 2000 FOBT 2000 Sigmoidoscopy 2000 [facility]-Colorectal Cancer Screening 2000 [facility]-Bone Density Scan 10/22/2018 10/22/2017 [facility]-Breast Cancer Screening 08/03/202107/16, 08/03/2019, 06/23/2018, Additional history exists [facility]-Diabetes: Hemoglobin A1C 09/21/2023 03/24/2023 [facility]-Depression Screening 12/18/2024 12/19/2023 [id number] Vaccine ( season) 2025 05/13/2023, 05/12/2022, 12/31/2021, [...] patient's age to complete this topic Insurance [facility] MEDICARE Care Teams Tool And Gauge Inspector Relationship Specialty Start Date End Date Noemi Gonsales APRN [address] [place] [address] PCP - General 12/23/23
[2025-06-24 14:04] LABS: Alanine Aminotransferase 23 U/L (12-78); Albumin Level 4.8 g/dl (3.5-5.0); Albumin/Globulin Ratio 1.5 (1.1-1.8); Alkaline Phosphatase 76 U/L (38-126); Anion Gap 15.2 mEq/L (5-15); Aspartate Amino Transferase 30 U/L (14-36); Bilirubin,Total 0.6 mg/dl (0.2-1.3); Blood Urea Nitrogen 23 mg/dl (7-17); Calcium 10.1 mg/dl (8.4-10.2); Carbon Dioxide 24 mmol/L (22.0-30.0); Chloride 104 mmol/L (98-107); Cholesterol 135 mg/dl (140-200); Creatinine,Serum 1.60 mg/dl (0.52-1.04); Estimated Glomerular Filt Rate 32 ml/min (>60); GFR (African American) 39 ML/MIN (>60); Globulin 3.1 g/dL (1.3-3.2); Glucose 106 mg/dl (74-100); HDL Cholesterol 57 mg/dl (40-60); Potassium 4.2 mmoL/L (3.5-5.1); Sodium 139 mmol/L (136-145); Total Protein,Serum 7.9 g/dl (6.3-8.2); Triglycerides 132 mg/dl (30-150)
[2025-06-24 16:22] LABS: Hemoglobin A1C 6.3 % (4.0-6.0)
== END 2025-06-24 23:59 | disposition home or self-care (01) ==
LOC: LAB.DROPOF 13:25
PROVIDERS: PCP Nurse Practitioner Family; Visit Provider Nurse Practitioner Family
DX: E78.5 Hyperlipidemia, unspecified (principal); E11.9 Type 2 diabetes mellitus without complications; I10 Essential (primary) hypertension
CPT/HCPCS: 80053; 80061; 82043; 82570; 83036